=== PATIENT | female | born 1935 | race Caucasian/White ===

== ENCOUNTER 2016-10-13 16:43 | Emergency (ER) | payer MEDICARE, OTHER ==
[2016-10-13 16:51] VITALS: TEMP 98.8
[2016-10-13] MEDS ORDERED: ONDANSETRON 4 MG/2 ML VIAL IVP STA (17:18)
[2016-10-13] MEDS ORDERED: MORPHINE SULFATE 2 MG/ML SYRINGE IVP STA (17:18)
[2016-10-13] MEDS ORDERED: SODIUM CHLORIDE 0.9% 1,000 ML IV STA (17:18)
[2016-10-13 17:37] LABS: Basophils % (A) 0 %; CHCM 31.9; Eosinophils # (A) 0.1 k/uL (0-0.7); Eosinophils % (A) 1 %; HCT 36.2 % (34.0-46.0); HDW 2.36; HGB 11.7 gm/dL (11.4-16.0); Luc # (Auto) 0.09; Luc % (Auto) 1; Lymphocytes # (A) 0.7 k/uL (1.0-4.8); Lymphocytes % (A) 8 %; MCH 27.3 pg (25.0-35.0); MCHC 32.2 g/dL (31.0-37.0); MCV 84.8 fL (80.0-100.0); Mean Platelet Volume 8.4; Monocytes # (A) 0.4 k/uL (0-1.0); Monocytes % (A) 4 %; Neutrophils # (A) 8.1 k/uL (1.3-7.7); Neutrophils % (A) 87 %; RBC 4.28 m/uL (3.80-5.40); RDW 13.9 % (11.5-15.5); WBC 9.3 k/uL (3.8-10.6); WBC (Perox) 9.93
[2016-10-13 17:51] LABS: INR 1.1 (<1.1); Prothrombin Time 11.1 sec (9.0-12.0)
--- NOTE | 2016-10-13 17:54 | ED ---
Abdominal Pain HPI - General Chief Complaint: Abdominal Pain Stated Complaint: Abd Pain Time Seen by Provider: 10/13/16 17:14 Source: patient, EMS, RN notes reviewed Mode of arrival: EMS Limitations: physical limitation - History of Present Illness Initial Comments: 81-year-old female presents emergency Department with chief complaint abdominal pain. Patient states she's been having abdominal pain over the last week. Patient states that she is at metal lodged. Patient states they have been giving her Mylanta but states it's not helping. Patient states she's had several episodes of diarrhea. Patient denies fever, chills. Patient had a prior cholecystectomy and hysterectomy. Patient denies any dysuria, hematuria. Patient has no history of C. diff. Patient denies any chest pain or shortness of breath. Patient states states that ice cream sometimes is help her pain. Patient states the morphine also help. - Related Data Home Medications Medication Instructions Recorded Confirmed Divalproex Sodium [Depakote] 125 mg PO BID 12/08/14 10/13/16 Linagliptin [Tradjenta] 5 mg PO DAILY 12/08/14 10/13/16 Metoprolol Tartrate [Lopressor] 50 mg PO BID 12/08/14 10/13/16 QUEtiapine [SEROquel] 50 mg PO DAILY@1600 12/08/14 10/13/16 Sertraline [Zoloft] 50 mg PO BID 12/08/14 10/13/16 Artificial Tears-Hypromellose 1 drops BOTH EYES TID PRN 06/21/15 10/13/16 [Artificial Tear Drops] Aspirin EC [Ecotrin Low Dose] 81 mg PO DAILY 06/21/15 10/13/16 Pravastatin Sodium [Pravachol] 40 mg PO HS 06/21/15 10/13/16 Ranitidine HCl [Zantac] 75 mg PO HS 06/21/15 10/13/16 ALPRAZolam [Xanax] 0.25 mg PO TID PRN 10/13/16 10/13/16 Acetaminophen [Tylenol] 650 mg PO Q6H PRN MDD 3GM 10/13/16 10/13/16 Antifungal Powder 1 applic TOPICAL DAILY 10/13/16 10/13/16 Cholecalciferol [Vitamin D3] 2,000 unit PO DAILY 10/13/16 10/13/16 Esomeprazole Magnesium [NexIUM] 40 mg PO HS 10/13/16 10/13/16 HYDROcodone/APAP 5-325MG [[place] 1 - 2 tab PO Q4H PRN 10/13/16 10/13/16 5-325] Insulin Aspart [NovoLOG] See Protocol SQ ACHS 10/13/16 10/13/16 Insulin Glargine [Lantus] 6 unit SQ DAILY@0800 10/13/16 10/13/16 Isosorbide Mononitrate ER [Imdur] 30 mg PO DAILY 10/13/16 10/13/16 Memantine [Namenda] 10 mg PO HS 10/13/16 10/13/16 Multivitamins, Thera [Multivitamin] 1 tab PO HS 10/13/16 10/13/16 Mylanta Suspension [id number]/5ml 30 ml PO Q6H PRN 10/13/16 10/13/16 Petrolatum, White [Aquaphor] 1 applic TOPICAL BID 10/13/16 10/13/16 Triamcinolone 0.1% Cream [Kenalog] 1 applicatio TOPICAL BID PRN 10/13/16 glipiZIDE XL [Glucotrol Xl] 10 mg PO DAILY 10/13/16 10/13/16 Previous Rx's Medication Instructions Recorded clonazePAM [KlonoPIN] 0.5 mg PO HS #10 tab 06/27/15 Ciprofloxacin HCl [Cipro] 500 mg PO Q12HR #20 tablet 10/13/16 Allergies Allergy/AdvReac Type Severity Reaction Status Date / Time LEWIS Inhibitors Allergy Unknown Verified 10/13/16 17:01 codeine Allergy Unknown Verified 10/13/16 17:01 influenza virus vaccine, Allergy Unknown Verified 10/13/16 17:01 specific Macrolide Antibiotics Allergy Unknown Verified 10/13/16 17:01 metformin Allergy Unknown Verified 10/13/16 17:01 Penicillins Allergy Unknown Verified 10/13/16 17:01 Review of Systems ROS Statement: Those systems with pertinent positive or pertinent negative responses have been documented in the HPI. ROS Other: All systems not noted in ROS Statement are negative. Past Medical History Past Medical History: Chest Pain / Angina, Dementia, Diabetes Mellitus, GERD/ Reflux, Hypertension, Osteoarthritis (OA) History of Any Multi-Drug Resistant Organisms: None Reported, MRSA Date of last positivie culture/infection: 2013 MDRO Source:: wound Past Surgical History: Cholecystectomy, Hysterectomy, Tonsillectomy Past Anesthesia/Blood Transfusion Reactions: No Reported Reaction Past Psychological History: Anxiety, Depression Smoking Status: Never smoker Past Alcohol Use History: None Reported Past Drug Use History: None Reported - Past Family History Mother Family Medical History: Chest Pain / Angina, Diabetes Mellitus, Hypertension General Exam Limitations: physical limitation General appearance: alert, in no apparent distress Neck exam: Present: normal inspection, full ROM. Absent: tenderness, meningismus, lymphadenopathy Respiratory exam: Present: normal lung sounds bilaterally. Absent: respiratory distress, wheezes, rales, rhonchi, stridor Cardiovascular Exam: Present: regular rate, normal rhythm, normal heart sounds. Absent: systolic murmur, diastolic murmur, rubs, gallop, clicks GI/Abdominal exam: Present: soft, tenderness (Mild tenderness in the upper abdominal region, left side of the abdomen.), normal bowel sounds. Absent: distended, guarding, rebound, rigid Back exam: Absent: CVA tenderness (R), CVA tenderness (L) Skin exam: Present: warm, dry, intact, normal color. Absent: rash Course Vital Signs 10/13/16 10/13/16 16:45 19:30 Temperature 98.8 F Pulse Rate 80 89 Respiratory 18 16 Rate Blood Pressure 114/55 157/81 O2 Sat by Pulse 96 94 L Oximetry Medical Decision Making - Medical Decision Making 81-year-old male present emergency department with chief complaint of abdominal pain diarrhea. Patient has urinary tract infection. There is concern for possible C. diff and which she needs to [facility] Patient was started on Cipro at this time. Return parameters were discussed. - Lab Data Result diagrams: 10/13/16 16:50 10/13/16 16:50 Lab Results 10/13/16 10/13/16 10/13/16 Range/Units 16:50 16:50 16:50 WBC 9.3 (3.8-10.6) k/uL RBC 4.28 (3.80-5.40) m/uL Hgb 11.7 (11.4-16.0) gm/dL Hct 36.2 (34.0-46.0) % MCV 84.8 (80.0-100.0) fL MCH 27.3 (25.0-35.0) pg MCHC 32.2 (31.0-37.0) g/dL RDW 13.9 (11.5-15.5) % Plt Count 177 (150-450) k/uL Neutrophils % 87 % Lymphocytes % 8 % Monocytes % 4 % Eosinophils % 1 % Basophils % 0 % Neutrophils # 8.1 H (1.3-7.7) k/uL Lymphocytes # 0.7 L (1.0-4.8) k/uL Monocytes # 0.4 (0-1.0) k/uL Eosinophils # 0.1 (0-0.7) k/uL Basophils # 0.0 (0-0.2) k/uL PT 11.1 (9.0-12.0) sec INR 1.1 (<1.1) APTT 21.0 L (22.0-30.0) sec Sodium 141 (137-145) mmol/L Potassium 4.5 (3.5-5.1) mmol/L Chloride 105 (98-107) mmol/L Carbon Dioxide 26 (22-30) mmol/L Anion Gap 10 mmol/L BUN 25 H (7-17) mg/dL Creatinine 0.74 (0.52-1.04) mg/dL Est GFR (MDRD) Af Amer >60 (>60 ml/min/1.73 sqM) Est GFR (MDRD) Non-Af >60 (>60 ml/min/1.73 sqM) Glucose 178 H (74-99) mg/dL Plasma Lactic Acid Eleazar (0.7-2.0) mmol/L Calcium 8.8 (8.4-10.2) mg/dL Total Bilirubin 0.8 (0.2-1.3) mg/dL AST 22 (14-36) U/L ALT 25 (9-52) U/L Alkaline Phosphatase 96 (38-126) U/L Total Protein 6.8 (6.3-8.2) g/dL Albumin 3.1 L (3.5-5.0) g/dL Amylase 36 (30-110) U/L Lipase 72 (23-300) U/L Urine Color Urine Appearance (Clear) Urine pH (5.0-8.0) Ur Specific [place] (1.001-1.035) Urine Protein (Negative) Urine Glucose (UA) (Negative) Urine Ketones (Negative) Urine Blood (Negative) Urine Nitrate (Negative) Urine Bilirubin (Negative) Urine Urobilinogen (<2.0) mg/dL Ur Leukocyte Esterase (Negative) Urine WBC (0-5) /hpf Urine Bacteria (None) /hpf Urine Mucus (None) /hpf 10/13/16 10/13/16 Range/Units 18:00 18:44 WBC (3.8-10.6) k/uL RBC (3.80-5.40) m/uL Hgb (11.4-16.0) gm/dL Hct (34.0-46.0) % MCV (80.0-100.0) fL MCH (25.0-35.0) pg MCHC (31.0-37.0) g/dL RDW (11.5-15.5) % Plt Count (150-450) k/uL Neutrophils % % Lymphocytes % % Monocytes % % Eosinophils % % Basophils % % Neutrophils # (1.3-7.7) k/uL Lymphocytes # (1.0-4.8) k/uL Monocytes # (0-1.0) k/uL Eosinophils # (0-0.7) k/uL Basophils # (0-0.2) k/uL PT (9.0-12.0) sec INR (<1.1) APTT (22.0-30.0) sec Sodium (137-145) mmol/L Potassium (3.5-5.1) mmol/L Chloride (98-107) mmol/L Carbon Dioxide (22-30) mmol/L Anion Gap mmol/L BUN (7-17) mg/dL Creatinine (0.52-1.04) mg/dL Est GFR (MDRD) Af Amer (>60 ml/min/1.73 sqM) Est GFR (MDRD) Non-Af (>60 ml/min/1.73 sqM) Glucose (74-99) mg/dL Plasma Lactic Acid Eleazar 0.7 (0.7-2.0) mmol/L Calcium (8.4-10.2) mg/dL Total Bilirubin (0.2-1.3) mg/dL AST (14-36) U/L ALT (9-52) U/L Alkaline Phosphatase (38-126) U/L Total Protein (6.3-8.2) g/dL Albumin (3.5-5.0) g/dL Amylase (30-110) U/L Lipase (23-300) U/L Urine Color Yellow Urine Appearance Cloudy H (Clear) Urine pH 6.0 (5.0-8.0) Ur Specific [place] 1.020 (1.001-1.035) Urine Protein Trace H (Negative) Urine Glucose (UA) Negative (Negative) Urine Ketones Trace H (Negative) Urine Blood Negative (Negative) Urine Nitrate Positive H (Negative) Urine Bilirubin Negative (Negative) Urine Urobilinogen <2.0 (<2.0) mg/dL Ur Leukocyte Esterase Large H (Negative) Urine WBC >182 H (0-5) /hpf Urine Bacteria Occasional H (None) /hpf Urine Mucus Rare H (None) /hpf Disposition Clinical Impression: Abdominal pain, UTI (urinary tract infection), Diarrhea Disposition: HOME SELF-CARE Condition: Stable Instructions: Abdominal Pain (ED) Additional Instructions: please complete stool studies as discussed. Please return to the Emergency Department if symptoms worsen or any other concerns. Prescriptions: Ciprofloxacin HCl [Cipro] 500 mg PO Q12HR #20 tablet Time of Disposition: 19:38
[2016-10-13 18:01] LABS: ALT 25 U/L (9-52); AST 22 U/L (14-36); Alkaline Phosphatase 96 U/L (38-126); Amylase 36 U/L (30-110); Anion Gap 10 mmol/L; Blood Urea Nitrogen 25 mg/dL (7-17); Calcium 8.8 mg/dL (8.4-10.2); Carbon Dioxide 26 mmol/L (22-30); Chloride 105 mmol/L (98-107); Glucose 178 mg/dL (74-99); Non-African American GFR(MDRD) >60 (>60 ml/min/1.73 sqM); Sodium 141 mmol/L (137-145); Total Bilirubin 0.8 mg/dL (0.2-1.3); Total Protein 6.8 g/dL (6.3-8.2)
[2016-10-13 18:02] LABS: Potassium 4.5 mmol/L (3.5-5.1)
--- NOTE | 2016-10-13 18:04 | XR ---
EXAMINATION TYPE: XR KUB DATE OF EXAM: 10/13/2016 5:58 PM COMPARISON: 11/26/2012 HISTORY: Abdominal pain and nausea TECHNIQUE: 2 views FINDINGS: There is no sign of intestinal obstruction or pneumoperitoneum. Fecal pattern is normal. Th ere is no sign of a mass. There are no pathologic calcifications over the kidneys. Abdominal aorta is atheromatous. IMPRESSION: Nonacute abdomen. No change.
[2016-10-13] MEDS ORDERED: RX INFO: IV CONTRAST WAS GIVEN 1 EACH MISC MISCELLANE PRN (18:07)
[2016-10-13 18:37] LABS: Appearance,Urine Cloudy (Clear); Bacteria,Urine Occasional /hpf; Bilirubin,Urine Negative (Negative); Glucose,Urine (UA) Negative (Negative); Ketones,Urine Trace (Negative); Leukocyte Esterase,Urine Large (Negative); Mucus,Urine Rare /hpf; Nitrite,Urine Positive (Negative); Particle Count 152993; Protein,Urine Trace (Negative); UA Billing (MACRO vs. MICRO) MICRO; Urobilinogen,Urine <2.0 mg/dL (<2.0); WBC,Urine >182 /hpf (0-5)
--- NOTE | 2016-10-13 18:50 | CT ---
EXAMINATION TYPE: CT abdomen pelvis w con DATE OF EXAM: 10/13/2016 6:41 PM COMPARISON: NONE HISTORY: PT STATES OF ABDOMINAL PAIN WITH NAUSEA AND DIARRHEA. CT DLP: 1714.1 mGycm Automated exposure control for dose reduction was used. TECHNIQUE: Helical acquisition of images was performed from the lung bases through the pelvis. CONTRAST: Performed without Oral Contrast and with IV Contrast, patient injected with 100 mL of Omnipaque 300. FINDINGS: There is patchy atelectasis at the lung bases. There is no pleural effusion. There is no pericardial effusion. Liver shows no focal defect. Spleen shows no focal defect. There is no sign of a pancreatic mass. Jacinto e ducts are not dilated. Cholecystectomy is noted. There is no adrenal mass. There is thinning of the left renal cortex. There is no hydronephrosis. The re is no evidence of a renal mass. Abdominal aorta is atheromatous. There is no retroperitoneal adeno mana. There is a small umbilical hernia that contains omental fat. The appendix appears normal. There is no evidence of a bowel obstruction. There is fluid in the: Down to the rectum. Bladder distends smoothly. There are sigmoid diverticula. There is no evidence of div erticulitis. There is a small amount of free fluid in the pelvis. There are spondylotic changes in th e thoracic and lumbar spine. IMPRESSION: THERE ARE COLONIC FLUID LEVELS CONSISTENT WITH DIARRHEA. MINIMAL FREE FLUID IN THE PELVIS OF UNCERTAI N SIGNIFICANCE. MILD COLONIC DIVERTICULOSIS. UMBILICAL HERNIA. MILD ATELECTASIS AT THE LUNG BASES.
[2016-10-13 19:33] VITALS: BP 157/81; PULSE 89; RESP 16
== END 2016-10-13 20:22 | disposition home or self-care (01) ==
LOC: EC 16:43
DX: N39.0 Urinary tract infection, site not specified (principal); R19.7 Diarrhea, unspecified; E11.9 Type 2 diabetes mellitus without complications; I10 Essential (primary) hypertension; K21.9 Gastro-esophageal reflux disease without esophagitis; M19.90 Unspecified osteoarthritis, unspecified site; F41.9 Anxiety disorder, unspecified; F32.9 Major depressive disorder, single episode, unspecified; F03.90 Unspecified dementia, unspecified severity, without behavioral disturbance, psychotic disturbance, mood disturbance, and anxiety; Z86.14 Personal history of Methicillin resistant Staphylococcus aureus infection; Z88.5 Allergy status to narcotic agent; Z88.0 Allergy status to penicillin; Z88.8 Allergy status to other drugs, medicaments and biological substances; Z88.7 Allergy status to serum and vaccine; Z88.1 Allergy status to other antibiotic agents; Z79.4 Long term (current) use of insulin; Z79.899 Other long term (current) drug therapy; Z79.84 Long term (current) use of oral hypoglycemic drugs; Z79.82 Long term (current) use of aspirin
CPT/HCPCS: 99285; 96374; 96375; 96361; 36415; 80053; 82150; 83605; 83690; 85025; 85610; 85730; 81001; 87086; 87077; 87186; 74000; 74177; J2405; J2270; Q9967

== ENCOUNTER 2021-07-28 02:34 | Inpatient (IN) | payer MEDICARE, OTHER ==
[2021-07-28] MEDS ORDERED: SODIUM CHLORIDE 0.9% 1,000 ML IV STA (02:40)
[2021-07-28] MEDS ORDERED: KETOROLAC 30 MG/ML 1 ML VIAL IVP STA (02:40)
[2021-07-28] MEDS ORDERED: ACETAMINOPHEN TAB 500 MG TAB PO STA (02:40)
--- NOTE | 2021-07-28 02:42 | ED ---
Fever HPI - General Stated Complaint: Fever Time Seen by Provider: 07/28/21 02:36 Source: RN notes reviewed, old records reviewed Limitations: no limitations - History of Present Illness Initial Comments: This is an 85-year-old female to the emergency room today. Patient presents today for evaluation regards to fever. Fever not feeling well. Weakness. Eyes for evaluation of fever and cough for metal lodged patient is a poor strain secondary to dementia. Patient had covert test that was negative MD Complaint: fever, malaise, weakness -: hour(s) Temperature Source: subjective Context: multiple patients with similar symptoms Associated Symptoms: chills, myalgias, cough Treatments Prior to Arrival: none, Acetaminophen - Related Data Home Medications Medication Instructions Recorded Confirmed Divalproex Sodium [Depakote] 125 mg PO BID 12/08/14 10/13/16 Linagliptin [Tradjenta] 5 mg PO DAILY 12/08/14 10/13/16 Metoprolol Tartrate [Lopressor] 50 mg PO BID 12/08/14 10/13/16 QUEtiapine [SEROquel] 50 mg PO DAILY@1600 12/08/14 10/13/16 Sertraline [Zoloft] 50 mg PO BID 12/08/14 10/13/16 Artificial Tears-Hypromellose 1 drops BOTH EYES TID PRN 06/21/15 10/13/16 [Artificial Tear Drops] Aspirin EC [Ecotrin Low Dose] 81 mg PO DAILY 06/21/15 10/13/16 Pravastatin Sodium [Pravachol] 40 mg PO HS 06/21/15 10/13/16 raNITIdine HCL [Zantac] 75 mg PO HS 06/21/15 10/13/16 ALPRAZolam [Xanax] 0.25 mg PO TID PRN 10/13/16 10/13/16 Acetaminophen [Tylenol] 650 mg PO Q6H PRN MDD 3GM 10/13/16 10/13/16 Antifungal Powder 1 applic TOPICAL DAILY 10/13/16 10/13/16 Cholecalciferol [Vitamin D3] 2,000 unit PO DAILY 10/13/16 10/13/16 Esomeprazole Magnesium [NexIUM] 40 mg PO HS 10/13/16 10/13/16 HYDROcodone/APAP 5-325MG [[place] 1 - 2 tab PO Q4H PRN 10/13/16 10/13/16 5-325] INSULIN ASPART (NovoLOG) [NovoLOG] See Protocol SQ ACHS 10/13/16 10/13/16 Insulin Glargine [Lantus] 6 unit SQ DAILY@0800 10/13/16 10/13/16 Isosorbide Mononitrate ER [Imdur] 30 mg PO DAILY 10/13/16 10/13/16 Memantine [Namenda] 10 mg PO HS 10/13/16 10/13/16 Multivitamins, Thera [Multivitamin] 1 tab PO HS 10/13/16 10/13/16 Mylanta Suspension [id number]/5ml 30 ml PO Q6H PRN 10/13/16 10/13/16 Petrolatum, White [Aquaphor] 1 applic TOPICAL BID 10/13/16 10/13/16 Triamcinolone 0.1% Cream [Kenalog 1 applicatio TOPICAL BID PRN 10/13/16 10/13/16 0.1% Cream] glipiZIDE XL [Glucotrol Xl] 10 mg PO DAILY 10/13/16 10/13/16 Previous Rx's Medication Instructions Recorded clonazePAM [KlonoPIN] 0.5 mg PO HS #10 tab 06/27/15 Ciprofloxacin HCl [Cipro] 500 mg PO Q12HR #20 tablet 10/13/16 Allergies Allergy/AdvReac Type Severity Reaction Status Date / Time LEWIS Inhibitors Allergy Unknown Verified 07/28/21 02:45 codeine Allergy Unknown Verified 07/28/21 02:45 influenza virus vaccine, Allergy Unknown Verified 07/28/21 02:45 specific Macrolide Antibiotics Allergy Unknown Verified 07/28/21 02:45 metformin Allergy Unknown Verified 07/28/21 02:45 Penicillins Allergy Unknown Verified 07/28/21 02:45 Review of Systems ROS Statement: Those systems with pertinent positive or pertinent negative responses have been documented in the HPI. ROS Other: All systems not noted in ROS Statement are negative. Past Medical History Past Medical History: Chest Pain / Angina, Dementia, Diabetes Mellitus, GERD/Reflux, Hypertension, Osteoarthritis (OA) History of Any Multi-Drug Resistant Organisms: ESBL, MRSA Date of last positivie culture/infection: 01/11/14 MRSA MDRO Source:: ESBL URINE, MRSA Buttock Past Surgical History: Cholecystectomy, Hysterectomy, Tonsillectomy Past Anesthesia/Blood Transfusion Reactions: No Reported Reaction Past Psychological History: Anxiety, Depression Past Alcohol Use History: None Reported Past Drug Use History: None Reported - Past Family History Mother Family Medical History: Chest Pain / Angina, Diabetes Mellitus, Hypertension General Exam General appearance: alert, in no apparent distress, anxious Head exam: Present: atraumatic, normocephalic, normal inspection Eye exam: Present: normal appearance, PERRL, EOMI. Absent: scleral icterus, conjunctival injection, periorbital swelling ENT exam: Present: normal exam, mucous membranes dry Neck exam: Present: normal inspection. Absent: tenderness, meningismus, lymphadenopathy Respiratory exam: Present: normal lung sounds bilaterally. Absent: respiratory distress, wheezes, rales, rhonchi, stridor Cardiovascular Exam: Present: normal rhythm, tachycardia, normal heart sounds. Absent: systolic murmur, diastolic murmur, rubs, gallop, clicks GI/Abdominal exam: Present: soft, normal bowel sounds. Absent: distended, tenderness, guarding, rebound, rigid Extremities exam: Present: normal inspection, full ROM, normal capillary refill. Absent: tenderness, pedal edema, joint swelling, calf tenderness Back exam: Present: normal inspection Neurological exam: Present: alert, oriented X3, CN II-XII intact Psychiatric exam: Present: normal affect, normal mood Skin exam: Present: warm, dry, intact, normal color. Absent: rash Course Vital Signs 07/28/21 07/28/21 07/28/21 02:40 03:00 03:59 Temperature 101.5 F H 101.0 F H Pulse Rate 125 H 120 H 113 H Respiratory 20 18 16 Rate Blood Pressure 118/53 111/51 113/62 O2 Sat by Pulse 96 95 Oximetry - Reevaluation(s) Reevaluation #1: 07/28/21 04:12 Medical record is reviewed Reevaluation #2: 07/28/21 05:07 Patient has no change in symptoms here in the ER Reevaluation #3: 07/28/21 05:08 Patient informed results and questions answered - Consultations Consultation #1: Spoke with [facility] were agreed to admit this patient Medical Decision Making - Medical Decision Making 85 female DF for evaluation of fever and altered mental status positive for UTI x-rays negative patient will be admitted for IV antibiotics and treatment - Lab Data Result diagrams: 07/28/21 03:05 07/28/21 03:05 Lab Results 07/28/21 07/28/21 07/28/21 Range/Units 03:05 03:05 03:05 WBC 6.7 (3.8-10.6) k/uL RBC 3.69 L (3.80-5.40) m/uL Hgb 10.2 L (11.4-16.0) gm/dL Hct 30.4 L (34.0-46.0) % MCV 82.4 (80.0-100.0) fL MCH 27.6 (25.0-35.0) pg MCHC 33.5 (31.0-37.0) g/dL RDW 14.0 (11.5-15.5) % Plt Count 184 (150-450) k/uL MPV 9.4 Neutrophils % 80 % Lymphocytes % 8 % Monocytes % 9 % Eosinophils % 1 % Basophils % 0 % Neutrophils # 5.4 (1.3-7.7) k/uL Lymphocytes # 0.6 L (1.0-4.8) k/uL Monocytes # 0.6 (0-1.0) k/uL Eosinophils # 0.1 (0-0.7) k/uL Basophils # 0.0 (0-0.2) k/uL PT 11.8 (9.0-12.0) sec INR 1.1 (<1.2) APTT 21.1 L (22.0-30.0) sec Sodium 134 L (137-145) mmol/L Potassium 4.5 (3.5-5.1) mmol/L Chloride 103 (98-107) mmol/L Carbon Dioxide 24 (22-30) mmol/L Anion Gap 7 mmol/L BUN 30 H (7-17) mg/dL Creatinine 0.87 (0.52-1.04) mg/dL Est GFR (CKD-EPI)AfAm 71 (>60 ml/min/1.73 sqM) Est GFR (CKD-EPI)NonAf 62 (>60 ml/min/1.73 sqM) Glucose 108 H (74-99) mg/dL Plasma Lactic Acid [place] (0.7-2.0) mmol/L Calcium 8.6 (8.4-10.2) mg/dL Magnesium 1.7 (1.6-2.3) mg/dL Total Bilirubin 0.3 (0.2-1.3) mg/dL AST 24 (14-36) U/L ALT 12 (4-34) U/L Alkaline Phosphatase 70 (38-126) U/L Lactate Dehydrogenase 509 (313-618) U/L C-Reactive Protein 4.9 H (<1.0) mg/dL Total Protein 6.5 (6.3-8.2) g/dL Albumin 2.8 L (3.5-5.0) g/dL Urine Color Urine Appearance (Clear) Urine pH (5.0-8.0) Ur Specific [place] (1.001-1.035) Urine Protein (Negative) Urine Glucose (UA) (Negative) Urine Ketones (Negative) Urine Blood (Negative) Urine Nitrite (Negative) Urine Bilirubin (Negative) Urine Urobilinogen (<2.0) mg/dL Ur Leukocyte Esterase (Negative) Urine RBC (0-5) /hpf Urine WBC (0-5) /hpf Urine WBC Clumps (None) /hpf Urine Bacteria (None) /hpf Urine Mucus (None) /hpf 07/28/21 07/28/21 Range/Units 03:05 03:55 WBC (3.8-10.6) k/uL RBC (3.80-5.40) m/uL Hgb (11.4-16.0) gm/dL Hct (34.0-46.0) % MCV (80.0-100.0) fL MCH (25.0-35.0) pg MCHC (31.0-37.0) g/dL RDW (11.5-15.5) % Plt Count (150-450) k/uL MPV Neutrophils % % Lymphocytes % % Monocytes % % Eosinophils % % Basophils % % Neutrophils # (1.3-7.7) k/uL Lymphocytes # (1.0-4.8) k/uL Monocytes # (0-1.0) k/uL Eosinophils # (0-0.7) k/uL Basophils # (0-0.2) k/uL PT (9.0-12.0) sec INR (<1.2) APTT (22.0-30.0) sec Sodium (137-145) mmol/L Potassium (3.5-5.1) mmol/L Chloride (98-107) mmol/L Carbon Dioxide (22-30) mmol/L Anion Gap mmol/L BUN (7-17) mg/dL Creatinine (0.52-1.04) mg/dL Est GFR (CKD-EPI)AfAm (>60 ml/min/1.73 sqM) Est GFR (CKD-EPI)NonAf (>60 ml/min/1.73 sqM) Glucose (74-99) mg/dL Plasma Lactic Acid [place] 1.0 (0.7-2.0) mmol/L Calcium (8.4-10.2) mg/dL Magnesium (1.6-2.3) mg/dL Total Bilirubin (0.2-1.3) mg/dL AST (14-36) U/L ALT (4-34) U/L Alkaline Phosphatase (38-126) U/L Lactate Dehydrogenase (313-618) U/L C-Reactive Protein (<1.0) mg/dL Total Protein (6.3-8.2) g/dL Albumin (3.5-5.0) g/dL Urine Color Yellow Urine Appearance Turbid H (Clear) Urine pH 8.5 H (5.0-8.0) Ur Specific [place] 1.016 (1.001-1.035) Urine Protein 3+ H (Negative) Urine Glucose (UA) Negative (Negative) Urine Ketones Negative (Negative) Urine Blood Small H (Negative) Urine Nitrite Negative (Negative) Urine Bilirubin Negative (Negative) Urine Urobilinogen <2.0 (<2.0) mg/dL Ur Leukocyte Esterase Large H (Negative) Urine RBC >182 H (0-5) /hpf Urine WBC >182 H (0-5) /hpf Urine WBC Clumps Many H (None) /hpf Urine Bacteria Many H (None) /hpf Urine Mucus Rare H (None) /hpf - EKG Data -: EKG Interpreted by Me (EKG shows sinus rhythm 124 [place] 170 QRS 72 QTC 439) - Radiology Data Radiology results: report reviewed (Chest x-rays negative for acute disease), image reviewed Disposition Clinical Impression: Weakness, Altered mental state, UTI (urinary tract infection) Disposition: ADMITTED IP TO [facility] Condition: Fair Is patient prescribed a controlled substance at d/c from ED?: No Referrals: Brad Velasco DO [Primary Care Provider] - 1-2 days
--- NOTE | 2021-07-28 03:15 | XR ---
EXAMINATION TYPE: XR chest 1V portable DATE OF EXAM: 07/28/2021 COMPARISON: 06/23/2015 HISTORY: Pneumonia TECHNIQUE: Single view FINDINGS: There is no heart failure nor confluent pneumonic infiltrate. Costophrenic angles are clear . There are no hilar masses. IMPRESSION: No active cardiopulmonary disease. No change.
[2021-07-28 03:29] LABS: Basophils % (A) 0 %; Eosinophils # (A) 0.1 k/uL (0-0.7); Eosinophils % (A) 1 %; HCT 30.4 % (34.0-46.0); HGB 10.2 gm/dL (11.4-16.0); Lymphocytes # (A) 0.6 k/uL (1.0-4.8); Lymphocytes % (A) 8 %; MCH 27.6 pg (25.0-35.0); MCHC 33.5 g/dL (31.0-37.0); MCV 82.4 fL (80.0-100.0); Mean Platelet Volume 9.4; Monocytes # (A) 0.6 k/uL (0-1.0); Monocytes % (A) 9 %; Neutrophils # (A) 5.4 k/uL (1.3-7.7); Neutrophils % (A) 80 %; Platelet Count 184 k/uL (150-450); RBC 3.69 m/uL (3.80-5.40); WBC 6.7 k/uL (3.8-10.6)
[2021-07-28 03:54] LABS: INR 1.1 (<1.2); Prothrombin Time 11.8 sec (9.0-12.0)
[2021-07-28 04:08] LABS: Partial Thromboplastin Time 21.1 sec (22.0-30.0)
[2021-07-28 04:10] LABS: Albumin 2.8 g/dL (3.5-5.0); C Reactive Protein 4.9 mg/dL (<1.0); Calcium 8.6 mg/dL (8.4-10.2); Magnesium 1.7 mg/dL (1.6-2.3); Potassium 4.5 mmol/L (3.5-5.1); Total Bilirubin 0.3 mg/dL (0.2-1.3); Total Protein 6.5 g/dL (6.3-8.2)
[2021-07-28 04:40] LABS: Appearance,Urine Turbid (Clear); Bacteria,Urine Many /hpf; Bilirubin,Urine Negative (Negative); Blood,Urine Small (Negative); Color,Urine Yellow; Glucose,Urine (UA) Negative (Negative); Ketones,Urine Negative (Negative); Leukocyte Esterase,Urine Large (Negative); Mucus,Urine Rare /hpf; Nitrite,Urine Negative (Negative); PH, Urine 8.5 (5.0-8.0); Protein,Urine 3+ (Negative); RBC,Urine >182 /hpf (0-5); Specific Gravity,Urine 1.016 (1.001-1.035); Urobilinogen,Urine <2.0 mg/dL (<2.0); WBC,Urine >182 /hpf (0-5)
[2021-07-28] MEDS ORDERED: NALOXONE 0.4 MG/ML 1 ML VIAL IV PRN (04:59)
[2021-07-28] MEDS ORDERED: ONDANSETRON 4 MG/2 ML VIAL IVP PRN (04:59)
[2021-07-28] MEDS: MORPHINE SULFATE 4 MG/ML SYRINGE IV PRN ×2 (05:44→23:52)
[2021-07-28] MEDS: SODIUM CHLORIDE 0.9% 1,000 ML IV SCH ×3 (05:45→18:23)
[2021-07-28] MEDS ORDERED: CALCIUM CARBONATE 500 MG CHEWABLE PO PRN (14:19)
[2021-07-28] MEDS ORDERED: MAG HYDROX/AL HYDROX/SIMETH 30 ML CUP PO PRN (14:19)
[2021-07-28] MEDS ORDERED: MAGNESIUM HYDROXIDE 2,400 MG/10 ML CUP PO PRN (14:19)
[2021-07-28] MEDS ORDERED: LACTULOSE 20 GM/30 ML CUP PO PRN (14:19)
[2021-07-28] MEDS ORDERED: MELATONIN 3 MG TABLET PO PRN (14:19)
[2021-07-28] MEDS ORDERED: ALPRAZolam 0.25 MG TAB PO PRN (14:19)
[2021-07-28] MEDS: PSYLLIUM HUSK 100% 6 GM PACKET PO SCH (15:59)
[2021-07-28] MEDS: ISOSORBIDE MONONITRATE ER 30 MG TAB.ER.24H PO SCH (15:59)
[2021-07-28] MEDS: DIVALPROEX SPRINKLE 125 MG CAP.SPRINK PO SCH ×2 (15:59→23:40)
[2021-07-28] MEDS: METOPROLOL TARTRATE 25 MG TAB PO SCH (15:59)
[2021-07-28] MEDS: SERTRALINE 50 MG TAB PO SCH (15:59)
[2021-07-28] MEDS ORDERED: NON FORMULARY DRUG (Cranberry Fruit Extract [Cranberry] 500 MG Tablet) PO SCH (21:00)
--- NOTE | 2021-07-28 21:25 | P.HPIM ---
History of Present Illness H&P Date: 07/28/21 Chief Complaint: Fever This is a 85-year-old patient who follows with Dr. Velasco at [facility]. Chronic stable medical conditions include dementia, diabetes, GERD, hypertension, osteoarthritis, anxiety depression. Per the EMS run sheet patient was at the baseline mental status. Normally AO 2. Patient developed a fever 102 and a productive cough. Rapid COVID saw was negative. Patient had a very productive cough. Body aches and pains. Care is patient is somewhat delirious mumbling. Not able to give much of a history. r congestive cough. Patient did test positive for COVID. Review of systems cannot be obtained as patient rather delirious Past medical history to include: Dementia, diabetes, GERD, hypertension, osteoarthritis, anxiety, depression Social history: Resident of [facility]. No history of smoking or alcohol r eported. Family history: Diabetes, hypertension Physical examination: VITAL SIGNS: 101.5, 125, 20, 118/53, 96% room air upon presentation GENERAL: BMI 29.9, laying in bed a bit lethargic delirious. Congested cough EYES: Pupils equal. Conjunctiva normal. HEENT: External appearance of nose and ears normal, oral cavity grossly normal. NECK: JVD not raised; masses not palpable. HEART: First and second heart sounds are normal; no edema. LUNGS: Respiratory rate increased, decreased breath sound expiratory crackles. ABDOMEN: Soft, nontender, liver spleen not palpable, no masses palpable. PSYCH: [Unable to assess patient somewhat delirious l. MUSCULAR skeletal: Evidence of OA in multiple joints NEUROLOGICAL: [Cranial nerves grossly intact; no facial asymmetry, moving limbs LYMPHATICS: No lymph nodes palpable in the axilla and neck INVESTIGATIONS, reviewed in the clinical context: White count 6.7 hemoglobin 10.2 platelets 184 sodium 134 potassium 4.5 BUN 30 creatinine 0.87 CRP 4.9 UA positive for leukoesterase WBC bacteria Coronavirus [PCR]: Detected d-dimer 3.53 EKG tracing personally reviewed by me-sinus tachycardia. Rate 124 Chest x-ray film personally reviewed by me-possible infiltrate. Portable Assessment and plan: -Acute COVID 19 pneumonitis. Patient's pulse ox as above 94%. We will hold off any steroids. Give vitamin C vitamin D zinc supplement. Subcu Lovenox -Acute UTI with cystitis IV ceftriaxone -Sepsis from pneumonitis and UTI IV fluids -Acute metabolic encephalopathy/delirium from sepsis Follow clinically -Anxiety depression otherwise specified Klonopin 0.5 mg daily at bedtime sotalol 50 mg twice a day Seroquel 200 mg daily at bedtime Seroquel 100 mg daily at bedtime -Hyperlipidemia Pravachol 20 mg daily at bedtime -Essential hypertension Lopressor 50 mg twice a day -Cognitive impairment likely from Alzheimer's dementia Namenda 10 mg daily at bedtime -Diabetes mellitus type 2 chronically on insulin Levemir 47 units subcu daily. Follow Accu-Cheks -GERD Nexium 40 mg daily at bedtime -Primary osteoarthritis multiple joints bilaterally Pain medications as needed Aspiration precautions. All feeding with assistance. Vitamin C vitamin D zinc. IV ceftriaxone. IV fluids. Follow Accu-Cheks. Resume home medications. Prognosis guarded. Given the complexity and severity of patient's condition expect the patient to be in the hospital at least for 2 overnights Past Medical History Past Medical History: Chest Pain / Angina, Dementia, Diabetes Mellitus, GERD/Reflux, Hypertension, Osteoarthritis (OA) History of Any Multi-Drug Resistant Organisms: ESBL, MRSA Date of last positivie culture/infection: 01/11/14 MRSA MDRO Source:: ESBL URINE, MRSA Buttock Past Surgical History: Cholecystectomy, Hysterectomy, Tonsillectomy Past Anesthesia/Blood Transfusion Reactions: No Reported Reaction Past Psychological History: Anxiety, Depression Past Alcohol Use History: None Reported Past Drug Use History: None Reported - Past Family History Mother Family Medical History: Chest Pain / Angina, Diabetes Mellitus, Hypertension Medications and Allergies Home Medications Medication Instructions Recorded Confirmed Type Divalproex Sodium [Depakote] 125 mg PO BID 12/08/14 07/28/21 History Linagliptin [Tradjenta] 5 mg PO DAILY 12/08/14 07/28/21 History Metoprolol Tartrate [Lopressor] 50 mg PO BID@0800,1600 12/08/14 07/28/21 History Sertraline [Zoloft] 50 mg PO BID@0800,1600 12/08/14 07/28/21 History Aspirin EC [Ecotrin Low Dose] 81 mg PO DAILY 06/21/15 07/28/21 History clonazePAM [KlonoPIN] 0.5 mg PO HS #10 tab 06/27/15 07/28/21 Rx Acetaminophen [Tylenol] 650 mg PO Q8H PRN 10/13/16 07/28/21 History Cholecalciferol [Vitamin D3] 50 mcg PO DAILY 10/13/16 07/28/21 History Esomeprazole Magnesium [NexIUM] 40 mg PO HS 10/13/16 07/28/21 History Isosorbide Mononitrate ER [Imdur] 90 mg PO DAILY 10/13/16 07/28/21 History Memantine [Namenda] 10 mg PO HS 10/13/16 07/28/21 History Multivitamins, Thera [Multivitamin] 1 tab PO DAILY 10/13/16 07/28/21 History Ascorbic Acid [Vitamin C] 500 mg PO BID 07/28/21 07/28/21 History Cranberry Fruit Extract [Cranberry] 500 mg PO HS 07/28/21 07/28/21 History Ferrous Sulfate [Feosol] 325 mg PO DAILY 07/28/21 07/28/21 History Insulin Detemir [Levemir Flextouch 47 units SQ DAILY 07/28/21 07/28/21 History Pen] Pravastatin Sodium [Pravachol] 20 mg PO HS 07/28/21 07/28/21 History Psyllium Husk 100% [Metamucil 6 gm PO DAILY 07/28/21 07/28/21 History Packet] QUEtiapine FUMARATE [SEROquel] 200 mg PO HS 07/28/21 07/28/21 History QUEtiapine [SEROquel] 100 mg PO HS 07/28/21 07/28/21 History Repaglinide [Prandin] 1 mg PO TID@0700,1200,1700 07/28/21 07/28/21 History Sennosides/Docusate Sodium [Senna 1 tab PO BID 07/28/21 07/28/21 History Plus 8.6-50 mg Tablet] Allergies Allergy/AdvReac Type Severity Reaction Status Date / Time LEWIS Inhibitors Allergy Unknown Verified 07/28/21 09:33 codeine Allergy Unknown Verified 07/28/21 09:33 influenza virus vaccine, Allergy Unknown Verified 07/28/21 09:33 specific Macrolide Antibiotics Allergy Unknown Verified 07/28/21 09:33 metformin Allergy Unknown Verified 07/28/21 09:33 Penicillins Allergy Unknown Verified 07/28/21 09:33 Physical Exam Vitals: Vital Signs Temp Pulse Pulse Resp BP BP Pulse Ox 07/28/21 19:58 108 H 18 119/67 95 07/28/21 14:00 98.8 F 104 H 18 144/72 94 L 07/28/21 08:00 99.6 F 109 H 18 127/54 92 L 07/28/21 05:00 105 H 18 92/56 96 07/28/21 03:59 101.0 F H 113 H 16 113/62 07/28/21 03:00 120 H 18 111/51 95 07/28/21 02:40 101.5 F H 125 H 20 118/53 96 Intake and Output 07/28/21 07/28/21 07/28/21 06:59 14:59 22:59 Output Total 800 Balance -800 Output: Urine 800 Uretheral (Ledesma) 800 Other: Voiding Method Indwelling Catheter # Bowel Movements 0 Weight 89.222 kg Results CBC & Chem 7: 07/28/21 03:05 07/28/21 03:05 Labs: Abnormal Lab Results - Last 24 Hours (Table) 07/28/21 07/28/21 07/28/21 Range/Units 03:05 03:05 03:05 RBC 3.69 L (3.80-5.40) m/uL Hgb 10.2 L (11.4-16.0) gm/dL Hct 30.4 L (34.0-46.0) % Lymphocytes # 0.6 L (1.0-4.8) k/uL APTT 21.1 L (22.0-30.0) sec D-Dimer (<0.60) mg/L FEU Sodium 134 L (137-145) mmol/L BUN 30 H (7-17) mg/dL Glucose 108 H (74-99) mg/dL C-Reactive Protein 4.9 H (<1.0) mg/dL Albumin 2.8 L (3.5-5.0) g/dL Urine Appearance (Clear) Urine pH (5.0-8.0) Urine Protein (Negative) Urine Blood (Negative) Ur Leukocyte Esterase (Negative) Urine RBC (0-5) /hpf Urine WBC (0-5) /hpf Urine WBC Clumps (None) /hpf Urine Bacteria (None) /hpf Urine Mucus (None) /hpf Coronavirus (PCR) (Not Detectd) 07/28/21 07/28/21 07/28/21 Range/Units 03:55 12:18 15:30 RBC (3.80-5.40) m/uL Hgb (11.4-16.0) gm/dL Hct (34.0-46.0) % Lymphocytes # (1.0-4.8) k/uL APTT (22.0-30.0) sec D-Dimer 3.53 H (<0.60) mg/L FEU Sodium (137-145) mmol/L BUN (7-17) mg/dL Glucose (74-99) mg/dL C-Reactive Protein (<1.0) mg/dL Albumin (3.5-5.0) g/dL Urine Appearance Turbid H (Clear) Urine pH 8.5 H (5.0-8.0) Urine Protein 3+ H (Negative) Urine Blood Small H (Negative) Ur Leukocyte Esterase Large H (Negative) Urine RBC >182 H (0-5) /hpf Urine WBC >182 H (0-5) /hpf Urine WBC Clumps Many H (None) /hpf Urine Bacteria Many H (None) /hpf Urine Mucus Rare H (None) /hpf Coronavirus (PCR) Detected A (Not Detectd)
[2021-07-28] MEDS: ENOXAPARIN 40 MG/0.4 ML SYRINGE SQ SCH (23:40)
[2021-07-28] MEDS: MEMANTINE 10 MG TAB PO SCH (23:41)
[2021-07-28] MEDS: clonazePAM 0.5 MG TAB PO SCH (23:42)
[2021-07-29] MEDS: SENNOSIDES-DOCUSATE SODIUM 1 EACH TAB PO SCH ×3 (00:02→08:06)
[2021-07-29] MEDS: PANTOPRAZOLE 40 MG TABLET PO SCH ×3 (00:02→22:19)
[2021-07-29] MEDS: QUEtiapine 200 MG TAB PO SCH ×3 (00:02→20:42)
[2021-07-29] MEDS: PRAVASTATIN SODIUM 20 MG TAB PO SCH ×3 (00:02→20:42)
[2021-07-29] MEDS: ASCORBIC ACID 500 MG TAB PO SCH ×4 (03:16→22:20)
[2021-07-29] MEDS: SODIUM CHLORIDE 0.9% 1,000 ML IV SCH ×2 (03:17→11:34)
[2021-07-29] MEDS: ACETAMINOPHEN TAB 325 MG TAB PO PRN (05:00)
[2021-07-29] MEDS ORDERED: FUROSEMIDE 10 MG/ML 4 ML VIAL IV STA (06:25)
[2021-07-29 07:21] LABS: Glucose,Whole Blood 62 mg/dL (75-99)
[2021-07-29] MEDS: INSULIN DETEMIR (LEVEMIR) 100 UNIT/ML SYR SQ SCH (07:56)
[2021-07-29 07:57] LABS: ALT 16 U/L (4-34); AST 39 U/L (14-36); African American GFR (CKD) 74 (>60 ml/min/1.73 sqM); Albumin 2.6 g/dL (3.5-5.0); Albumin/Globulin Ratio 0.7; Alkaline Phosphatase 69 U/L (38-126); Anion Gap 7 mmol/L; Blood Urea Nitrogen 19 mg/dL (7-17); Calcium 7.6 mg/dL (8.4-10.2); Carbon Dioxide 25 mmol/L (22-30); Chloride 107 mmol/L (98-107); Globulin 3.6 g/dL; Glucose 68 mg/dL (74-99); Non-African American GFR(CKD) 64 (>60 ml/min/1.73 sqM); Potassium 4.5 mmol/L (3.5-5.1); Sodium 139 mmol/L (137-145); Total Bilirubin 0.2 mg/dL (0.2-1.3); Total Protein 6.2 g/dL (6.3-8.2)
[2021-07-29] MEDS: DIVALPROEX SPRINKLE 125 MG CAP.SPRINK PO SCH ×4 (07:59→22:19)
[2021-07-29] MEDS: ASPIRIN 81 MG PO SCH ×3 (07:59→12:00)
[2021-07-29] MEDS: CHOLECALCIFEROL 25 MCG (1000 IU) TABLET PO SCH ×2 (07:59→11:56)
[2021-07-29] MEDS: METOPROLOL TARTRATE 25 MG TAB PO SCH ×3 (08:01→16:03)
[2021-07-29] MEDS: SERTRALINE 50 MG TAB PO SCH ×3 (08:01→16:03)
[2021-07-29] MEDS: MULTIVITAMINS, THERA 1 EACH TAB PO SCH (08:06)
[2021-07-29] MEDS: ISOSORBIDE MONONITRATE ER 30 MG TAB.ER.24H PO SCH ×2 (08:06→12:03)
[2021-07-29] MEDS: PSYLLIUM HUSK 100% 6 GM PACKET PO SCH (08:07)
[2021-07-29] MEDS: ZINC SULFATE 220 MG CAP PO SCH (08:08)
[2021-07-29] MEDS: ENOXAPARIN 40 MG/0.4 ML SYRINGE SQ SCH (08:08)
[2021-07-29 08:21] LABS: Glucose,Whole Blood 59 mg/dL (75-99)
[2021-07-29] MEDS ORDERED: DEXTROSE 50% SYRINGE 50 ML IVP ONE (08:23)
[2021-07-29 08:34] LABS: Glucose,Whole Blood 143 mg/dL (75-99)
[2021-07-29 09:16] LABS: C Reactive Protein 7.7 mg/dL (<1.0)
--- NOTE | 2021-07-29 09:29 | XR ---
EXAMINATION TYPE: XR chest 1V portable DATE OF EXAM: 07/29/2021 COMPARISON: 07/28/2021 HISTORY: Cough TECHNIQUE: Single frontal view of the chest is obtained. FINDINGS: Bilateral subsegmental infiltrate at the lung bases. Heart size normal. Limited inspiratio n. No pneumothorax. Arthropathy of the shoulders. Diffuse osteopenia. Hypertrophic and degenerative c hange of the spine. IMPRESSION: 1. Bilateral infiltrate stable.
[2021-07-29 10:54] LABS: Basophils # (A) 0.02 X 10*3/uL (0.00-0.10); Basophils % (A) 0.2 %; Eosinophils # (A) 0 X 10*3/uL (0.04-0.35); Eosinophils % (A) 0 %; HCT 36.4 % (37.2-46.3); HGB 10.7 g/dL (12.0-15.0); Lymphocytes # (A) 1.69 X 10*3/uL (0.90-5.00); Lymphocytes % (A) 17.1 %; MCH 26.4 pg (27.0-32.0); MCHC 29.4 g/dL (32.0-37.0); MCV 89.9 fL (80.0-97.0); Mean Platelet Volume 12.2 fL (9.5-12.2); Monocytes # (A) 0.55 X 10*3/uL (0.20-1.00); Monocytes % (A) 5.6 %; Neutrophils # (A) 7.56 X 10*3/uL (1.80-7.70); Neutrophils % (A) 76.7 %; Platelet Count 178 X 10*3/uL (140-440); RBC 4.05 X 10*6/uL (4.10-5.20); RDW 14.8 % (11.5-14.5); WBC 9.86 X 10*3/uL (4.50-10.00)
[2021-07-29 12:01] LABS: Glucose,Whole Blood 172 mg/dL (75-99)
--- NOTE | 2021-07-29 14:02 | P.CNPUL ---
History of Present Illness Consult date: 07/29/21 Reason for consult: pneumonia History of present illness: 85-year-old female patient hospitalized for COVID 19 related pneumonia. The patient is a snf resident and she resides at [facility]. The patient has dementia, diabetes mellitus, hypertension, depression, and history of osteoarthritis. Normally, he is alert she is alert and oriented 1 and the patient needs care at all times. The patient was noted to have fever of 102 in addition to increased cough that was quite productive. The patient was unable to bring up much of sputum. There was also a reported history of body aches and pains and the patient was becoming more lethargic and delirious and mumbling. Noted the patient is unable to volunteer any history. The patient checked positive for COVID 19. UA. Also, her urine analysis was abnormal and t he patient may have an underlying urinary tract infection. For now, the patient's pro calcitonin level is at 0.12. D-dimer is at 4.14, the LDH level was 509 and the CRP level was 4.9. Sodium is at 139 with a BUN of 19 and a creatinine of 0.8 and the patient has a white cell count 9.8 with a hemoglobin of 10.7. The chest x-ray was repeated on 06/28/2021 and this was also compared to that she earlier chest x-ray that was done on 06/27/2021. Based on my review of the chest x-ray, the patient has smaller lung volumes. There was also some limited left basilar infiltrate. Otherwise no other acute abnormalities have been noted. For now, the patient is hospitalized. The patient is currently covered with a combination of IV Rocephin regarding possibility of urine checked infection, and Lovenox 40 mg subcu for DVT prophylaxis. Patient is currently on 2 L about 2 by nasal cannula with a pulse ox of 97%. No steroids have been offered to this patient. Meanwhile, the patient has been on Levemir insulin 35 units and the insulin was held today as the patient's blood sugar was running low. Outpatient medications of been all resume to her is pending for now. Blood cultures also pending. The patient was given a dose of Lasix 40 mg IV and the patient diuresed approximately 1900 mL of urine output. Review of Systems ROS unobtainable: due to mental status Past Medical History Past Medical History: Chest Pain / Angina, Dementia, Diabetes Mellitus, GERD/Reflux, Hypertension, Osteoarthritis (OA) History of Any Multi-Drug Resistant Organisms: ESBL, MRSA Date of last positivie culture/infection: 01/11/14 MRSA MDRO Source:: ESBL URINE, MRSA Buttock Past Surgical History: Cholecystectomy, Hysterectomy, Tonsillectomy Past Anesthesia/Blood Transfusion Reactions: No Reported Reaction Past Psychological History: Anxiety, Depression Smoking Status: Unknown if ever smoked Past Alcohol Use History: None Reported Past Drug Use History: None Reported - Past Family History Mother Family Medical History: Chest Pain / Angina, Diabetes Mellitus, Hypertension Medications and Allergies Home Medications Medication Instructions Recorded Confirmed Type Divalproex Sodium [Depakote] 125 mg PO BID 12/08/14 07/28/21 History Linagliptin [Tradjenta] 5 mg PO DAILY 12/08/14 07/28/21 History Metoprolol Tartrate [Lopressor] 50 mg PO BID@0800,1600 12/08/14 07/28/21 History Sertraline [Zoloft] 50 mg PO BID@0800,1600 12/08/14 07/28/21 History Aspirin EC [Ecotrin Low Dose] 81 mg PO DAILY 06/21/15 07/28/21 History clonazePAM [KlonoPIN] 0.5 mg PO HS #10 tab 06/27/15 07/28/21 Rx Acetaminophen [Tylenol] 650 mg PO Q8H PRN 10/13/16 07/28/21 History Cholecalciferol [Vitamin D3] 50 mcg PO DAILY 10/13/16 07/28/21 History Esomeprazole Magnesium [NexIUM] 40 mg PO HS 10/13/16 07/28/21 History Isosorbide Mononitrate ER [Imdur] 90 mg PO DAILY 10/13/16 07/28/21 History Memantine [Namenda] 10 mg PO HS 10/13/16 07/28/21 History Multivitamins, Thera [Multivitamin] 1 tab PO DAILY 10/13/16 07/28/21 History Ascorbic Acid [Vitamin C] 500 mg PO BID 07/28/21 07/28/21 History Cranberry Fruit Extract [Cranberry] 500 mg PO HS 07/28/21 07/28/21 History Ferrous Sulfate [Feosol] 325 mg PO DAILY 07/28/21 07/28/21 History Insulin Detemir [Levemir Flextouch 47 units SQ DAILY 07/28/21 07/28/21 History Pen] Pravastatin Sodium [Pravachol] 20 mg PO HS 07/28/21 07/28/21 History Psyllium Husk 100% [Metamucil 6 gm PO DAILY 07/28/21 07/28/21 History Packet] QUEtiapine FUMARATE [SEROquel] 200 mg PO HS 07/28/21 07/28/21 History QUEtiapine [SEROquel] 100 mg PO HS 07/28/21 07/28/21 History Repaglinide [Prandin] 1 mg PO TID@0700,1200,1700 07/28/21 07/28/21 History Sennosides/Docusate Sodium [Senna 1 tab PO BID 07/28/21 07/28/21 History Plus 8.6-50 mg Tablet] Allergies Allergy/AdvReac Type Severity Reaction Status Date / Time LEWIS Inhibitors Allergy Unknown Verified 07/28/21 09:33 codeine Allergy Unknown Verified 07/28/21 09:33 influenza virus vaccine, Allergy Unknown Verified 07/28/21 09:33 specific Macrolide Antibiotics Allergy Unknown Verified 07/28/21 09:33 metformin Allergy Unknown Verified 07/28/21 09:33 Penicillins Allergy Unknown Verified 07/28/21 09:33 Physical Exam Vitals: Vital Signs Temp Pulse Pulse Resp BP BP Pulse Ox 07/29/21 13:20 112 H 07/29/21 09:52 97 07/29/21 08:00 97.9 F 129 H 20 159/83 96 07/29/21 06:00 99.6 F 105 H 167/85 97 07/29/21 04:54 100.9 F H 100 17 151/68 97 07/29/21 00:15 98 18 124/78 95 07/28/21 19:58 108 H 18 119/67 95 07/28/21 14:00 98.8 F 104 H 18 144/72 94 L Intake and Output 07/28/21 07/29/21 07/29/21 22:59 06:59 14:59 Output Total 232 665 0375 Balance -800 -900 -1900 Output: Urine 543 [id number] [id number] Uretheral (Ledesma) 800 Other: Voiding Method Indwelling Catheter Indwelling Catheter # Bowel Movements 0 Weight 89.222 kg GENERAL: BMI 29.9, laying in bed a bit lethargic delirious. Breathing is nonlabored and the patient is currently on 2 L nasal cannula EYES: Pupils equal. Conjunctiva normal. HEENT: External appearance of nose and ears normal, oral cavity grossly normal. NECK: JVD not raised; masses not palpable. HEART: First and second heart sounds are normal; no edema. LUNGS: Respiratory rate increased, decreased breath sound expiratory crackles. ABDOMEN: Soft, nontender, liver spleen not palpable, no masses palpable. PSYCH: [Unable to assess patient somewhat delirious l. MUSCULAR skeletal: Evidence of OA in multiple joints NEUROLOGICAL: [Cranial nerves grossly intact; no facial asymmetry, moving limbs LYMPHATICS: No lymph nodes palpable in the axilla and neck Results - Laboratory Findings CBC and BMP: 07/29/21 06:50 07/29/21 06:50 PT/INR, D-dimer PT 11.8 sec (9.0-12.0) 07/28/21 03:05 INR 1.1 (<1.2) 07/28/21 03:05 D-Dimer 4.14 mg/L FEU (<0.60) H 07/29/21 06:50 Abnormal lab findings: Abnormal Labs 07/28/21 07/28/21 07/28/21 03:05 03:05 03:05 RBC 3.69 L Hgb 10.2 L Hct 30.4 L MCH MCHC RDW Lymphocytes # 0.6 L Eosinophils # APTT 21.1 L D-Dimer Sodium 134 L BUN 30 H Glucose 108 H POC Glucose (mg/dL) Calcium AST C-Reactive Protein 4.9 H Total Protein Albumin 2.8 L Procalcitonin Urine Appearance Urine pH Urine Protein Urine Blood Ur Leukocyte Esterase Urine RBC Urine WBC Urine WBC Clumps Urine Bacteria Urine Mucus Coronavirus (PCR) 07/28/21 07/28/21 07/28/21 03:55 12:18 15:30 RBC Hgb Hct MCH MCHC RDW Lymphocytes # Eosinophils # APTT D-Dimer 3.53 H Sodium BUN Glucose POC Glucose (mg/dL) Calcium AST C-Reactive Protein Total Protein Albumin Procalcitonin Urine Appearance Turbid H Urine pH 8.5 H Urine Protein 3+ H Urine Blood Small H Ur Leukocyte Esterase Large H Urine RBC >182 H Urine WBC >182 H Urine WBC Clumps Many H Urine Bacteria Many H Urine Mucus Rare H Coronavirus (PCR) Detected A 07/28/21 07/29/21 07/29/21 15:30 06:50 06:50 RBC 4.05 L Hgb 10.7 L Hct 36.4 L MCH 26.4 L MCHC 29.4 L RDW 14.8 H Lymphocytes # Eosinophils # 0 L APTT D-Dimer Sodium BUN 19 H Glucose 68 L POC Glucose (mg/dL) Calcium 7.6 L AST 39 H C-Reactive Protein 7.7 H Total Protein 6.2 L Albumin 2.6 L Procalcitonin 0.12 H Urine Appearance Urine pH Urine Protein Urine Blood Ur Leukocyte Esterase Urine RBC Urine WBC Urine WBC Clumps Urine Bacteria Urine Mucus Coronavirus (PCR) 07/29/21 07/29/21 07/29/21 06:50 07:20 08:20 RBC Hgb Hct MCH MCHC RDW Lymphocytes # Eosinophils # APTT D-Dimer 4.14 H Sodium BUN Glucose POC Glucose (mg/dL) 62 L 59 L Calcium AST C-Reactive Protein Total Protein Albumin Procalcitonin Urine Appearance Urine pH Urine Protein Urine Blood Ur Leukocyte Esterase Urine RBC Urine WBC Urine WBC Clumps Urine Bacteria Urine Mucus Coronavirus (PCR) 07/29/21 07/29/21 08:33 11:59 RBC Hgb Hct MCH MCHC RDW Lymphocytes # Eosinophils # APTT D-Dimer Sodium BUN Glucose POC Glucose (mg/dL) 143 H 172 H Calcium AST C-Reactive Protein Total Protein Albumin Procalcitonin Urine Appearance Urine pH Urine Protein Urine Blood Ur Leukocyte Esterase Urine RBC Urine WBC Urine WBC Clumps Urine Bacteria Urine Mucus Coronavirus (PCR) - Diagnostic Findings Chest x-ray: image reviewed Assessment and Plan Plan: 1 acute COVID 19 infection without any clear evidence of pneumonia. The patient is on 2 L of oxygen by nasal cannula and the pulse ox is around 97%. 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 Awaiting urine and blood cultures and the patient me was covered with IV Rocephin. No need for systemic steroids at this point in time. Monitor oxygenation. Currently on 2 L of oxygen by nasal cannula. She was given dose of Lasix 40 mg IV push with good diuresis. She is a full code for now. She is a snf resident and she typically resides at [facility]. She has had multiple UTIs in the past essentially with gram-negative bacteria most recent urine tract infection with degenerative 2020 with E. coli. This was an ESBL producing microorganism. Consider recurrence. She has also been infected with enterococcus in the past and addition to Proteus mirabilis.
[2021-07-29 17:01] LABS: Glucose,Whole Blood 198 mg/dL (75-99)
--- NOTE | 2021-07-29 17:09 | P.PN ---
Progress Note - Text Progress Note Date: 07/29/21 Chief Complaint: Fever This is a 85-year-old patient who follows with Dr. Velasco at [facility]. Chronic stable medical conditions include dementia, diabetes, GERD, hypertension, osteoarthritis, anxiety depression. Per the EMS run sheet patient was at the baseline mental status. Normally AO 2. Patient developed a fever 102 and a productive cough. Rapid COVID saw was negative. Patient had a very productive cough. Body aches and pains. Care is patient is somewhat delirious mumbling. Not able to give much of a history. r congestive cough. Patient did test positive for COVID. Admitted with COVID 19 pneumonitis, acute UTI with cystitis, sepsis, acute metabolic encephalopathy with delirium. On IV ceftriaxone. July 29: Patient has been spitting. Refusing to eat or drink. Laying in bed. Tired. Review of systems cannot be obtained as patient rather delirious Past medical history to include: Dementia, diabetes, GERD, hypertension, osteoarthritis, anxiety, depression Social history: Resident of [facility]. No history of smoking or alcohol reported. Family history: Diabetes, hypertension Physical examination: VITAL SIGNS: 98.2, 106, 19, 1 53 x 80, 93% on 2 L GENERAL: Laying in bed, awake, tired, congested cough EYES: Pupils equal. Conjunctiva normal. HEENT: External appearance of nose and ears normal, oral cavity grossly normal. NECK: JVD not raised; masses not palpable. HEART: First and second heart sounds are normal; no edema. LUNGS: Respiratory rate increased, decreased breath sound expiratory crackles. ABDOMEN: Soft, nontender, liver spleen not palpable, no masses palpable. PSYCH: [Unable to assess patient somewhat delirious l. MUSCULAR skeletal: Evidence of OA in multiple joints INVESTIGATIONS, reviewed in the clinical context: White count 6.7 hemoglobin 10.2 platelets 184 sodium 134 potassium 4.5 BUN 30 creatinine 0.87 CRP 4.9 UA positive for leukoesterase WBC bacteria Coronavirus [PCR]: Detected d-dimer 3.53 EKG tracing personally reviewed by me-sinus tachycardia. Rate 124 Chest x-ray film personally reviewed by me-possible infiltrate. Portable Assessment and plan: -Acute COVID 19 pneumonitis. Patient's pulse ox as above 94%. No steroids. Give vitamin C vitamin D zinc supplement. Subcu Lovenox -Acute UTI with cystitis IV ceftriaxone -Sepsis from pneumonitis and UTI IV fluids -Acute metabolic encephalopathy/delirium from sepsis: Some improvement Follow clinically -Anxiety depression otherwise specified Klonopin 0.5 mg daily at bedtime sotalol 50 mg twice a day Seroquel 200 mg daily at bedtime Seroquel 100 mg daily at bedtime -Hyperlipidemia Pravachol 20 mg daily at bedtime -Essential hypertension Lopressor 50 mg twice a day -Cognitive impairment likely from Alzheimer's dementia Namenda 10 mg daily at bedtime -Diabetes mellitus type 2 chronically on insulin Levemir 47 units subcu daily. Follow Accu-Cheks -GERD Nexium 40 mg daily at bedtime -Primary osteoarthritis multiple joints bilaterally Pain medications as needed Patient not eating drinking. Just about to come medications. Continue with supportive care. IV fluids. IV antibiotics.
[2021-07-29 20:19] LABS: Glucose,Whole Blood 195 mg/dL (75-99)
[2021-07-29] MEDS: clonazePAM 0.5 MG TAB PO SCH ×2 (20:42→22:19)
[2021-07-29] MEDS: MEMANTINE 10 MG TAB PO SCH ×2 (20:42→22:19)
[2021-07-30 07:12] LABS: Glucose,Whole Blood 87 mg/dL (75-99)
[2021-07-30] MEDS: INSULIN DETEMIR (LEVEMIR) 100 UNIT/ML SYR SQ SCH (07:19)
[2021-07-30] MEDS: METOPROLOL TARTRATE 25 MG TAB PO SCH ×2 (07:25→15:08)
[2021-07-30] MEDS: ISOSORBIDE MONONITRATE ER 30 MG TAB.ER.24H PO SCH (07:25)
[2021-07-30] MEDS: ZINC SULFATE 220 MG CAP PO SCH (07:25)
[2021-07-30] MEDS: DIVALPROEX SPRINKLE 125 MG CAP.SPRINK PO SCH ×2 (07:26→21:01)
[2021-07-30] MEDS: ASPIRIN 81 MG PO SCH (07:26)
[2021-07-30] MEDS: ASCORBIC ACID 500 MG TAB PO SCH ×2 (07:26→21:02)
[2021-07-30] MEDS: SENNOSIDES-DOCUSATE SODIUM 1 EACH TAB PO SCH ×2 (07:26→23:31)
[2021-07-30] MEDS: CHOLECALCIFEROL 25 MCG (1000 IU) TABLET PO SCH (07:26)
[2021-07-30] MEDS: SERTRALINE 50 MG TAB PO SCH ×2 (07:26→15:08)
[2021-07-30] MEDS: ENOXAPARIN 40 MG/0.4 ML SYRINGE SQ SCH (07:26)
[2021-07-30] MEDS: MULTIVITAMINS, THERA 1 EACH TAB PO SCH (07:26)
[2021-07-30] MEDS: PSYLLIUM HUSK 100% 6 GM PACKET PO SCH (07:44)
[2021-07-30] MEDS: SODIUM CHLORIDE 0.9% 1,000 ML IV SCH (07:45)
[2021-07-30 08:16] LABS: Basophils % (A) 0 %; Eosinophils % (A) 0 %; HCT 29.6 % (34.0-46.0); HGB 9.8 gm/dL (11.4-16.0); Lymphocytes # (A) 0.9 k/uL (1.0-4.8); Lymphocytes % (A) 10 %; MCV 84.8 fL (80.0-100.0); Mean Platelet Volume 9.3; Monocytes # (A) 0.7 k/uL (0-1.0); Monocytes % (A) 8 %; Neutrophils # (A) 7.6 k/uL (1.3-7.7); Neutrophils % (A) 81 %; Platelet Count 145 k/uL (150-450); RBC 3.49 m/uL (3.80-5.40); RDW 14.1 % (11.5-15.5); WBC 9.4 k/uL (3.8-10.6)
[2021-07-30 08:39] LABS: African American GFR (CKD) 59 (>60 ml/min/1.73 sqM); Anion Gap 7 mmol/L; Blood Urea Nitrogen 24 mg/dL (7-17); Calcium 7.4 mg/dL (8.4-10.2); Carbon Dioxide 26 mmol/L (22-30); Chloride 104 mmol/L (98-107); Glucose 75 mg/dL (74-99); Non-African American GFR(CKD) 51 (>60 ml/min/1.73 sqM); Potassium 3.6 mmol/L (3.5-5.1); Sodium 137 mmol/L (137-145)
[2021-07-30 11:41] LABS: Glucose,Whole Blood 113 mg/dL (75-99)
--- NOTE | 2021-07-30 13:38 | P.PN ---
Subjective Progress Note Date: 07/30/21 85-year-old female patient hospitalized for COVID 19 related pneumonia. The patient is a snf resident and she resides at [facility]. The patient has dementia, diabetes mellitus, hypertension, depression, and history of osteoarthritis. Normally, he is alert she is alert and oriented 1 and the patient needs care at all times. The patient was noted to have fever of 102 in addition to increased cough that was quite productive. The patient was unable to bring up much of sputum. There was also a reported history of body aches and pains and the patient was becoming more lethargic and delirious and mumbling. Noted the patient is unable to volunteer any history. The patient checked positive for COVID 19. UA. Also, her urine analysis was abnormal and the patient may have an underlying urinary tract infection. For now, the patient's pro calcitonin level is at 0.12. D-dimer is at 4.14, the LDH level was 509 and the CRP level was 4.9. Sodium is at 139 with a BUN of 19 and a creatinine of 0.8 and the patient has a white cell count 9.8 with a hemoglobin of 10.7. The chest x-ray was repeated on 06/28/2021 and this was also compared to that she earlier chest x-ray that was done on 06/27/2021. Based on my review of the chest x-ray, the patient has smaller lung volumes. There was also some limited left basilar infiltrate. Otherwise no other acute abnormalities have been noted. For now, the patient is hospitalized. The patient is currently covered with a combination of IV Rocephin regarding possibility of urine checked infection, and Lovenox 40 mg subcu for DVT prophylaxis. Patient is currently on 2 L about 2 by nasal cannula with a pulse ox of 97%. No steroids have been offered to this patient. Meanwhile, the patient has been on Levemir insulin 35 units and the insulin was held today as the patient's blood sugar was running low. Outpatient medications of been all resume to her is pending for now. Blood cultures also pending. The patient was given a dose of Lasix 40 mg IV and the patient diuresed approximately 1900 mL of urine output. On 07/30/2021, the patient is lethargic and sleepy. Nevertheless, her breathing is nonlabored. The patient is only a few liters of oxygen by nasal cannula and I was informed by the nursing staff that she can even come off oxygen. No significant cough or sputum production. She is laying comfortably in bed. As suspected, the patient had an underlying urinary tract infection. The patient had blood cultures sent and there is are negative. Urine cultures still pending for now. The white cell count of 9.4 with a hemoglobin of 9.8, renal function is stable. D-dimer is at 1.7. The patient remains on IV antibiotics and the patient is currently on IV Rocephin with the understanding that she may be potentially infected with a ESBL producing gram-negative bacteria. Final cultures and sensitivities are pending for now. She remains on Levemir insulin 35 units along with a sliding scale coverage. She is on Lovenox 40 mg subcu for DVT prophylaxis. Rest of the medication resumed from her home list.. Objective - Vital Signs Vital signs: Vital Signs Temp 100.3 F H 07/30/21 10:23 Pulse 87 07/30/21 10:23 Resp 17 07/30/21 10:23 BP 101/63 07/30/21 10:23 Pulse Ox 94 L 07/30/21 10:23 Intake & Output 07/29/21 07/30/21 07/30/21 18:59 06:59 18:59 Output Total 1900 300 Balance -1900 -300 Weight 89.222 kg Output: Urine 1900 300 Other: Voiding Method Indwelling Catheter Indwelling Catheter Indwelling Catheter - Exam GENERAL: BMI 29.9, laying in bed a bit lethargic delirious. Breathing is nonlabored and the patient is currently on 2 L nasal cannula EYES: Pupils equal. Conjunctiva normal. HEENT: External appearance of nose and ears normal, oral cavity grossly normal. NECK: JVD not raised; masses not palpable. HEART: First and second heart sounds are normal; no edema. LUNGS: Respiratory rate increased, decreased breath sound expiratory crackles. ABDOMEN: Soft, nontender, liver spleen not palpable, no masses palpable. PSYCH: [Unable to assess patient somewhat delirious l. MUSCULAR skeletal: Evidence of OA in multiple joints NEUROLOGICAL: [Cranial nerves grossly intact; no facial asymmetry, moving limbs LYMPHATICS: No lymph nodes palpable in the axilla and neck - Labs CBC & Chem 7: 07/30/21 07:35 07/30/21 07:35 Labs: Abnormal Lab Results - Last 24 Hours (Table) 07/29/21 07/29/21 07/30/21 Range/Units 16:59 20:16 07:35 RBC 3.49 L (3.80-5.40) m/uL Hgb 9.8 L (11.4-16.0) gm/dL Hct 29.6 L (34.0-46.0) % Plt Count 145 L (150-450) k/uL Lymphocytes # 0.9 L (1.0-4.8) k/uL D-Dimer (<0.60) mg/L FEU BUN (7-17) mg/dL POC Glucose (mg/dL) 198 H 195 H (75-99) mg/dL Calcium (8.4-10.2) mg/dL 07/30/21 07/30/21 07/30/21 Range/Units 07:35 07:35 11:40 RBC (3.80-5.40) m/uL Hgb (11.4-16.0) gm/dL Hct (34.0-46.0) % Plt Count (150-450) k/uL Lymphocytes # (1.0-4.8) k/uL D-Dimer 1.71 H (<0.60) mg/L FEU BUN 24 H (7-17) mg/dL POC Glucose (mg/dL) 113 H (75-99) mg/dL Calcium 7.4 L (8.4-10.2) mg/dL Microbiology - Last 24 Hours (Table) 07/28/21 05:20 Blood Culture - Preliminary Blood No Growth after 48 hours 07/28/21 05:05 Blood Culture - Preliminary Blood No Growth after 48 hours Assessment and Plan Plan: 1 acute COVID 19 infection without any clear evidence of pneumonia. The patient is on 2 L of oxygen by nasal cannula and the pulse ox is around 97%. Patient is saturating normally on room air oxygen 2 acute UTI, awaiting urine cultures and blood cultures and the patient is currently on IV Rocephin 3 dementia and the patient is a sn[facility] resident 4 diabetes mellitus 5 chronic anxiety and his depression 6 hypertension 7 dementia 8 osteoarthritis 9 history of recurrent UTIs including ESBL producing E. coli on 09/14/2020, and previous gram-negative bacteria with providencia, Proteus and enterococcus faecalis Plan Clinically stable and the patient has negative blood cultures and we are still awaiting urine cultures. Keep the patient on oxygen 2 L per minute nasal cannula Aspiration precautions. The patient requires assistance with feeding and her appetite and general is low. Continue supportive care and will continue to follow. Of interest will be urine cultures
[2021-07-30] MEDS: ACETAMINOPHEN TAB 325 MG TAB PO PRN ×2 (15:35→21:02)
[2021-07-30 15:59] LABS: Amorphous Sediment,Urine Occasional /hpf; Appearance,Urine Cloudy (Clear); Bacteria,Urine Occasional /hpf; Bilirubin,Urine Negative (Negative); Blood,Urine Large (Negative); Color,Urine Yellow; Glucose,Urine (UA) Negative (Negative); Hyaline Casts,Urine 19 /lpf (0-2); Ketones,Urine Trace (Negative); Leukocyte Esterase,Urine Large (Negative); Mucus,Urine Many /hpf; Nitrite,Urine Negative (Negative); PH, Urine 5.5 (5.0-8.0); Protein,Urine 2+ (Negative); RBC,Urine >182 /hpf (0-5); Specific Gravity,Urine 1.018 (1.001-1.035); Squamous Epithelial Cell,Urine 13 /hpf (0-4); Urobilinogen,Urine <2.0 mg/dL (<2.0); WBC,Urine >182 /hpf (0-5)
[2021-07-30 16:32] LABS: Glucose,Whole Blood 140 mg/dL (75-99)
--- NOTE | 2021-07-30 19:00 | P.PN ---
Progress Note - Text Progress Note Date: 07/30/21 Chief Complaint: Fever This is a 85-year-old patient who follows with Dr. Velasco at [facility]. Chronic stable medical conditions include dementia, diabetes, GERD, hypertension, osteoarthritis, anxiety depression. Per the EMS run sheet patient was at the baseline mental status. Normally AO 2. Patient developed a fever 102 and a productive cough. Rapid COVID swab was negative. had a very productive cough. Body aches and pains. patient is somewhat delirious mumbling. Not able to give much of a history. congestived cough. Patient did test positive for COVID. Admitted with COVID 19 pneumonitis, acute UTI with cystitis, sepsis, acute meta bolic encephalopathy with delirium. On IV ceftriaxone. July 29: Patient has been spitting. Refusing to eat or drink. Laying in bed. Tired. July 30: Patient's pulse ox was moving around 94%. Not eating much. Low- grade fever. Tired. On IV ceftriaxone. Review of systems cannot be obtained as patient rather delirious Active Medications Acetaminophen (Acetaminophen Tab 325 Mg Tab) 650 mg PO Q6HR PRN PRN Reason: Mild Pain or Fever > 100.5 Last Admin: 07/30/21 15:35 Dose: 650 mg Documented by: Al Hydroxide/Mg Hydroxide (Mag Hydrox/Al Hydrox/Simeth 30 Ml Cup) 15 ml PO Q6HR PRN PRN Reason: Indigestion Alprazolam (Alprazolam 0.25 Mg Tab) 0.25 mg PO Q6HR PRN PRN Reason: Anxiety Ascorbic Acid (Ascorbic Acid 500 Mg Tab) 500 mg PO BID [facility] Last Admin: 07/30/21 07:26 Dose: 500 mg Documented by: Aspirin (Aspirin 81 Mg) 81 mg PO DAILY [facility] Last Admin: 07/30/21 07:26 Dose: 81 mg Documented by: Calcium Carbonate/Glycine (Calcium Carbonate 500 Mg Chewable) 1,000 mg PO Q4HR PRN PRN Reason: Dyspepsia Cholecalciferol (Cholecalciferol 25 Mcg (1000 Iu) Tablet) 50 mcg PO DAILY [facility] Last Admin: 07/30/21 07:26 Dose: 50 mcg Documented by: Clonazepam (Clonazepam 0.5 Mg Tab) 0.5 mg PO HS [facility] Last Admin: 11/29/21 22:19 Dose: Not Given Documented by: Divalproex Sodium (Divalproex Sprinkle 125 Mg Cap.Sprink) 125 mg PO BID [facility] Last Admin: 07/30/21 07:26 Dose: 125 mg Documented by: Enoxaparin Sodium (Enoxaparin 40 Mg/0.4 Ml Syringe) 40 mg SQ DAILY [facility] Last Admin: 07/30/21 07:26 Dose: 40 mg Documented by: Sodium Chloride (Saline 0.9%) 1,000 mls @ 30 mls/hr IV .Q24H [facility] Last Admin: 07/30/21 07:45 Dose: Not Given Documented by: Ceftriaxone Sodium 1 gm/ (Sodium Chloride) 50 mls @ 100 mls/hr IVPB Q12HR [facility] Last Admin: 07/30/21 07:26 Dose: 100 mls/hr Documented by: Insulin Detemir (Insulin Detemir (Levemir) 100 Unit/Ml Syr) 35 unit SQ DAILY@0700 [facility] Last Admin: 07/30/21 07:19 Dose: Not Given Documented by: Isosorbide Mononitrate (Isosorbide Mononitrate Er 30 Mg Tab.Er.24h) 90 mg PO DAILY [facility] Last Admin: 07/30/21 07:25 Dose: 90 mg Documented by: Lactulose (Lactulose 20 Gm/30 Ml Cup) 20 gm PO DAILY PRN PRN Reason: Constipation Magnesium Hydroxide (Magnesium Hydroxide 2,400 Mg/10 Ml Cup) 2,400 mg PO DAILY PRN PRN Reason: Constipation Melatonin (Melatonin 3 Mg Tablet) 3 mg PO HS PRN PRN Reason: Insomnia Memantine (Memantine 10 Mg Tab) 10 mg PO HS [facility] Last Admin: 07/29/21 22:19 Dose: Not Given Documented by: Metoprolol Tartrate (Metoprolol Tartrate 25 Mg Tab) 25 mg PO BID@0800,1600 [facility] Last Admin: 07/30/21 15:08 Dose: 25 mg Documented by: Morphine Sulfate (Morphine Sulfate 4 Mg/Ml Syringe) 4 mg IV Q4HR PRN PRN Reason: Severe Pain Last Admin: 07/28/21 23:52 Dose: 4 mg Documented by: Multivitamins (Multivitamins, Thera 1 Each Tab) 1 each PO DAILY [facility] Last Admin: 07/30/21 07:26 Dose: 1 each Documented by: Naloxone HCl (Naloxone 0.4 Mg/Ml 1 Ml Vial) 0.2 mg IV Q2M PRN PRN Reason: Opioid Reversal Ondansetron HCl (Ondansetron 4 Mg/2 Ml Vial) 4 mg IVP Q8HR PRN PRN Reason: Nausea And Vomiting Last Admin: 07/28/21 23:56 Dose: 4 mg Documented by: Pantoprazole Sodium (Pantoprazole 40 Mg Tablet) 40 mg PO HS [facility] Last Admin: 07/29/21 22:19 Dose: Not Given Documented by: Pravastatin Sodium (Pravastatin Sodium 20 Mg Tab) 20 mg PO HS [facility] Last Admin: 07/29/21 20:42 Dose: 20 mg Documented by: Psyllium Hydrophilic Mucilloid (Psyllium Husk 100% 6 Gm Packet) 6 gm PO DAILY [facility] Last Admin: 07/30/21 07:44 Dose: Not Given Documented by: Quetiapine Fumarate (Quetiapine 200 Mg Tab) 200 mg PO [facility] Last Admin: 07/29/21 20:42 Dose: 200 mg Documented by: Senna/Docusate Sodium (Sennosides-Docusate Sodium 1 Each Tab) 1 each PO BID [facility] Last Admin: 07/30/21 07:26 Dose: 1 each Documented by: Sertraline HCl (Sertraline 50 Mg Tab) 50 mg PO BID@0800,1600 [facility] Last Admin: 07/30/21 15:08 Dose: 50 mg Documented by: Zinc Sulfate (Zinc Sulfate 220 Mg Cap) 220 mg PO DAILY [facility] Last Admin: 07/30/21 07:25 Dose: 220 mg Documented by: Past medical history to include: Dementia, diabetes, GERD, hypertension, osteoarthritis, anxiety, depression Social history: Resident of [facility]. No history of smoking or alcohol reported. Family history: Diabetes, hypertension Physical examination: VITAL SIGNS: 100.3, 87, 17, 10 1 x 63, 94% on 2 L GENERAL: Laying in bed, awake, tired, congested cough LUNGS: Respiratory rate increased, PSYCH: [Unable to assess patient somewhat delirious l. NEURO: Cranial labs grossly intact. Moving all 4 limbs Rest of the exam per pulmonary and nursing INVESTIGATIONS, reviewed in the clinical context: July 30: White count 9.4 hemoglobin 9.8 platelets 145 d-dimer 1.7 potassium 3.6 creatinine 1.02 White count 6.7 hemoglobin 10.2 platelets 184 sodium 134 potassium 4.5 BUN 30 creatinine 0.87 CRP 4.9 UA positive for leukoesterase WBC bacteria Coronavirus [PCR]: Detected d-dimer 3.53 EKG tracing personally reviewed by me-sinus tachycardia. Rate 124 Chest x-ray film personally reviewed by me-possible infiltrate. Portable Assessment and plan: -Acute COVID 19 pneumonitis. Patient's pulse ox as above 94%. No steroids. Give vitamin C vitamin D zinc supplement. Subcu Lovenox -Acute UTI with cystitis IV ceftriaxone -Sepsis from pneumonitis and UTI IV fluids -Acute metabolic encephalopathy/delirium from sepsis: Some improvement Follow clinically -Anxiety depression otherwise specified Klonopin 0.5 mg daily at bedtime Zoloft 50 mg twice a day Seroquel 200 mg daily at bedtime Seroquel 100 mg daily at bedtime -Hyperlipidemia Pravachol 20 mg daily at bedtime -Essential hypertension Lopressor 50 mg twice a day -Cognitive impairment likely from Alzheimer's dementia Namenda 10 mg daily at bedtime -Diabetes mellitus type 2 chronically on insulin Levemir 47 units subcu daily. Follow Accu-Cheks -GERD Nexium 40 mg daily at bedtime -Primary osteoarthritis multiple joints bilaterally Pain medications as needed Poor oral intake. Continue current medication treatment plan. Encourage by mouth intake. Check labs.
[2021-07-30 20:57] LABS: Glucose,Whole Blood 122 mg/dL (75-99)
[2021-07-30] MEDS: MEMANTINE 10 MG TAB PO SCH (21:01)
[2021-07-30] MEDS: clonazePAM 0.5 MG TAB PO SCH (21:01)
[2021-07-30] MEDS: PANTOPRAZOLE 40 MG TABLET PO SCH (21:02)
[2021-07-31 07:23] LABS: Glucose,Whole Blood 86 mg/dL (75-99)
[2021-07-31] MEDS: ASCORBIC ACID 500 MG TAB PO SCH ×2 (08:21→21:39)
[2021-07-31] MEDS: ZINC SULFATE 220 MG CAP PO SCH (08:21)
[2021-07-31] MEDS: DIVALPROEX SPRINKLE 125 MG CAP.SPRINK PO SCH ×2 (08:22→21:39)
[2021-07-31] MEDS: MULTIVITAMINS, THERA 1 EACH TAB PO SCH (08:22)
[2021-07-31] MEDS: SERTRALINE 50 MG TAB PO SCH ×2 (08:22→14:00)
[2021-07-31] MEDS: METOPROLOL TARTRATE 25 MG TAB PO SCH ×2 (08:22→14:00)
[2021-07-31] MEDS: SENNOSIDES-DOCUSATE SODIUM 1 EACH TAB PO SCH ×2 (08:22→21:39)
[2021-07-31] MEDS: ISOSORBIDE MONONITRATE ER 30 MG TAB.ER.24H PO SCH (08:22)
[2021-07-31] MEDS: CHOLECALCIFEROL 25 MCG (1000 IU) TABLET PO SCH (08:22)
[2021-07-31] MEDS: ASPIRIN 81 MG PO SCH (08:22)
[2021-07-31] MEDS: ENOXAPARIN 40 MG/0.4 ML SYRINGE SQ SCH (08:23)
[2021-07-31] MEDS: PSYLLIUM HUSK 100% 6 GM PACKET PO SCH (08:23)
[2021-07-31] MEDS: ACETAMINOPHEN TAB 325 MG TAB PO PRN ×2 (08:26→14:00)
[2021-07-31 08:28] LABS: African American GFR (CKD) 78 (>60 ml/min/1.73 sqM); Anion Gap 4 mmol/L; Blood Urea Nitrogen 25 mg/dL (7-17); Calcium 7.6 mg/dL (8.4-10.2); Carbon Dioxide 28 mmol/L (22-30); Chloride 106 mmol/L (98-107); Glucose 79 mg/dL (74-99); Non-African American GFR(CKD) 67 (>60 ml/min/1.73 sqM); Potassium 3.8 mmol/L (3.5-5.1); Sodium 138 mmol/L (137-145)
[2021-07-31] MEDS: INSULIN DETEMIR (LEVEMIR) 100 UNIT/ML SYR SQ SCH ×2 (08:32→21:41)
[2021-07-31 09:09] LABS: C Reactive Protein 14.1 mg/dL (<1.0)
[2021-07-31 11:41] LABS: Glucose,Whole Blood 146 mg/dL (75-99)
[2021-07-31] MEDS: IOPAMIDOL CONTRAST (ORAL USE) VIAL PO PRN ×2 (12:04→13:03)
[2021-07-31] MEDS: SODIUM CHLORIDE 0.9% 1,000 ML IV SCH (12:09)
--- NOTE | 2021-07-31 13:57 | CT ---
EXAMINATION TYPE: CT abdomen pelvis w con DATE OF EXAM: 07/31/2021 COMPARISON: To 317 HISTORY: Pain CT DLP: 1761 mGycm CONTRAST: CT scan of the abdomen and pelvis is performed with Oral Contrast and with IV Contrast, patient injec georges with 100 mL of Isovue 300. FINDINGS: LUNG BASES-: Basilar infiltrates and/or atelectasis with pleural effusions. LIVER/GB: The gallbladder is surgically absent. No space occupying hepatic lesion. Biliary tree is of normal caliber. PANCREAS: No inflammation. No distinct mass. SPLEEN: No splenic enlargement. No lesion seen. ADRENALS: No nodule. No thickening. KIDNEYS/BLADDER: No hydronephrosis. No nephrolithiasis. No distinct renal mass. Ledesma catheter is seen within the urinary bladder. BOWEL: Normal appendix. Normal bowel caliber. No inflammation. GENITAL ORGANS: No gross abnormality. LYMPH NODES: No greater than 1cm abdominal or pelvic lymph nodes are appreciated. AORTA: No significant abnormality. OSSEOUS STRUCTURES: No significant abnormality is seen. OTHER: Fat-containing ventral hernia. IMPRESSION: 1. No acute intra-abdominal process identified to account for the patient's symptoms. Fat-containing ventral hernia. Basilar atelectasis and/or infiltrates with effusions.
--- NOTE | 2021-07-31 16:38 | P.PN ---
Subjective Progress Note Date: 07/31/21 Principal diagnosis: COVID 19 85-year-old female patient hospitalized for COVID 19 related pneumonia. The patient is a senior care resident and she resides at [facility]. The patient has dementia, diabetes mellitus, hypertension, depression, and history of osteoarthritis. Normally, he is alert she is alert and oriented 1 and the patient needs care at all times. The patient was noted to have fever of 102 in addition to increased cough that was quite productive. The patient was unable to bring up much of sputum. There was also a reported history of body aches and pains and the patient was becoming more lethargic and delirious and mumbling. Noted the patient is unable to volunteer any history. The patient checked positive for COVID 19. UA. Also, her urine analysis was abnormal and the patient may have an underlying urinary tract infection. For now, the patient's pro calcitonin level is at 0.12. D-dimer is at 4.14, the LDH level was 509 and the CRP level was 4.9. Sodium is at 139 with a BUN of 19 and a creatinine of 0.8 and the patient has a white cell count 9.8 with a hemoglobin of 10.7. The chest x-ray was repeated on 06/28/2021 and this was also compared to that she earlier chest x-ray that was done on 06/27/2021. Based on my review of the chest x-ray, the patient has smaller lung volumes. There was also some limited left basilar infiltrate. Otherwise no other acute abnormalities have been noted. For now, the patient is hospitalized. The patient is currently covered with a combination of IV Rocephin regarding possibility of urine checked infection, and Lovenox 40 mg subcu for DVT prophylaxis. Patient is currently on 2 L about 2 by nasal cannula with a pulse ox of 97%. No steroids have been offered to this patient. Meanwhile, the patient has been on Levemir insulin 35 units and the insulin was held today as the patient's blood sugar was running low. Outpatient medications of been all resume to her is pending for now. Blood cultures also pending. The patient was given a dose of Lasix 40 mg IV and the patient diuresed approximately 1900 mL of urine output. On 07/30/2021, the patient is lethargic and sleepy. Nevertheless, her breathing is nonlabored. The patient is only a few liters of oxygen by nasal cannula and I was informed by the nursing staff that she can even come off oxygen. No significant cough or sputum production. She is laying comfortably in bed. As suspected, the patient had an underlying urinary tract infection. The patient had blood cultures sent and there is are negative. Urine cultures still pending for now. The white cell count of 9.4 with a hemoglobin of 9.8, renal function is stable. D-dimer is at 1.7. The patient remains on IV antibiotics and the patient is currently on IV Rocephin with the understanding that she may be potentially infected with a ESBL producing gram-negative bacteria. Final cultures and sensitivities are pending for now. She remains on Levemir insulin 35 units along with a sliding scale coverage. She is on Lovenox 40 mg subcu for DVT prophylaxis. Rest of the medication resumed from her home list. On 07/31/2021 patient seen in follow-up on medical surgical floor. She is resting comfortably in bed, she is asymptomatic from pulmonary perspective, her breathing is nonlabored, she is currently on 2 L of oxygen a pulse ox of 97%, albert hubbard does have a low-grade fever this morning, and she was febrile in the last 24 hours, with a T-max of 102.2F, patient was found to have urinary tract infection and she is currently on Rocephin awaiting final urine cultures, patient is known to have ESBL urinary tract infections in the past, current antibiotic coverage is with Rocephin. Today's labs have been reviewed, d-dimer is improved and is down to 1.37, electrolytes and renal profile are unremarkable, and her CRP is 14.1, her LDH on admission was non-elevated at 509, progressed on a level was 0.12. She was complaining of some abdominal pain, CT of the abdomen and pelvis was completed showing no acute intra-abdominal process, basilar atelectasis with effusions were noted. Objective - Vital Signs Vital signs: Vital Signs Temp 99.2 F 07/31/21 14:21 Pulse 77 07/31/21 14:21 Resp 18 07/31/21 14:21 BP 115/61 07/31/21 14:21 Pulse Ox 97 07/31/21 14:21 Intake & Output 07/30/21 07/31/21 07/31/21 18:59 06:59 18:59 Intake Total 6 Output Total 300 300 Balance -300 -300 6 Intake: Oral 6 Output: Urine 300 300 Other: Voiding Method Indwelling Catheter Indwelling Catheter Indwelling Catheter # Bowel Movements 0 - Exam GENERAL EXAM: Alert, pleasant, 85-year-old white female, on 2 L of oxygen sats at 97% comfortable in no apparent distress. HEAD: Normocephalic/atraumatic. EYES: Normal reaction of pupils, equal size. Conjunctiva pink, sclera white. NOSE: Clear with pink turbinates. THROAT: No erythema or exudates. NECK: No masses, no JVD, no thyroid enlargement, no adenopathy. CHEST: No chest wall deformity. Symmetrical expansion. LUNGS: Equal air entry with no crackles, wheeze, rhonchi or dullness. CVS: Regular rate and rhythm, normal S1 and S2, no gallops, no murmurs, no rubs ABDOMEN: Soft, nontender. No hepatosplenomegaly, normal bowel sounds, no guarding or rigidity. EXTREMITIES: No clubbing, no edema, no cyanosis, 2+ pulses and upper and lower extremities. MUSCULOSKELETAL: Muscle strength and tone normal. SPINE: No scoliosis or deformity SKIN: No rashes CENTRAL NERVOUS SYSTEM: Alert and oriented -3. No focal deficits, tone is normal in all 4 extremities. PSYCHIATRIC: Alert and oriented -3. Appropriate affect. Intact judgment and insight. - Labs CBC & Chem 7: 07/30/21 07:35 07/31/21 06:38 Labs: Abnormal Lab Results - Last 24 Hours (Table) 07/30/21 07/30/21 07/31/21 Range/Units 16:30 20:55 06:38 D-Dimer 1.37 H (<0.60) mg/L FEU BUN (7-17) mg/dL POC Glucose (mg/dL) 140 H 122 H (75-99) mg/dL Calcium (8.4-10.2) mg/dL C-Reactive Protein (<1.0) mg/dL 07/31/21 07/31/21 Range/Units 06:38 11:40 D-Dimer (<0.60) mg/L FEU BUN 25 H (7-17) mg/dL POC Glucose (mg/dL) 146 H (75-99) mg/dL Calcium 7.6 L (8.4-10.2) mg/dL C-Reactive Protein 14.1 H (<1.0) mg/dL Microbiology - Last 24 Hours (Table) 07/28/21 05:05 Blood Culture - Preliminary Blood No Growth after 72 hours 07/28/21 05:20 Blood Culture - Preliminary Blood No Growth after 72 hours 07/30/21 15:33 Urine Culture - Preliminary Urine,Voided Assessment and Plan Plan: Assessment: #1. Acute COVID-19 infection without any clear evidence of pneumonia, patient is currently 2 units of oxygen, and her pulse ox is around 97%, breathing comfortably, chest x-ray showed no evidence of acute pulmonary process on admission chest x-ray, subsequent chest x-ray showed bibasilar infiltrates, related to atelectasis with effusions. #2. Acute urinary tract infection, awaiting final urine cultures, currently covered with Rocephin #3. History of dementia, patient is a senior care resident #4. The patient. The #5. Chronic anxiety and depression #6. Hypertension #7. Osteoarthritis #8. History of ESBL producing E. coli, and previous gram-negative bacteria with potential, Proteus and enterococcus faecalis Donnie: Patient remains asymptomatic from pulmonary perspective CT of the abdomen and pelvis reviewed showing bibasilar atelectasis and small pleural effusions Provide incentive spirometer, instructed on the use, Vital signs are stable, obtain a room air pulse ox Awaiting final urine cultures Continue supportive medical treatment We'll monitor for worsening dyspnea or hypoxia I performed a history & physical examination of the patient and discussed their management with my nurse practitioner, Anh Freedman. I reviewed the nurse practitioner's note and agree with the documented findings and plan of care. Lung sounds are positive for basilar crackles throughout the lung nichols. The findings and the impression was discussed with the patient. I attest to the documentation by the nurse practitioner. Time with Patient: Less than 30
[2021-07-31 17:00] LABS: Glucose,Whole Blood 125 mg/dL (75-99)
--- NOTE | 2021-07-31 18:23 | P.PN ---
Progress Note - Text Progress Note Date: 07/31/21 Chief Complaint: Fever This is a 85-year-old patient who follows with Dr. Velasco at [facility]. Chronic stable medical conditions include dementia, diabetes, GERD, hypertension, osteoarthritis, anxiety depression. Per the EMS run sheet patient was at the baseline mental status. Normally AO 2. Patient developed a fever 102 and a productive cough. Rapid COVID swab was negative. had a very productive cough. Body aches and pains. patient is somewhat delirious mumbling. Not able to give much of a history. congestived cough. Patient did test positive for COVID. Admitted with COVID 19 pneumonitis, acute UTI with cystitis, sepsis, acute meta bolic encephalopathy with delirium. On IV ceftriaxone. July 29: Patient has been spitting. Refusing to eat or drink. Laying in bed. Tired. July 30: Patient's pulse ox was moving around 94%. Not eating much. Low- grade fever. Tired. On IV ceftriaxone. July 31: Laying in bed. Tired. Awake. Eating small amounts. Pulse ox 94% on 2 L on IV ceftriaxone. Add Decadron. Review of systems cannot be obtained as patient rather delirious Active Medications Acetaminophen (Acetaminophen Tab 325 Mg Tab) 650 mg PO Q6HR PRN PRN Reason: Mild Pain or Fever > 100.5 Last Admin: 07/31/21 14:00 Dose: 650 mg Documented by: Al Hydroxide/Mg Hydroxide (Mag Hydrox/Al Hydrox/Simeth 30 Ml Cup) 15 ml PO Q6HR PRN PRN Reason: Indigestion Alprazolam (Alprazolam 0.25 Mg Tab) 0.25 mg PO Q6HR PRN PRN Reason: Anxiety Ascorbic Acid (Ascorbic Acid 500 Mg Tab) 500 mg PO BID [facility] Last Admin: 07/31/21 08:21 Dose: 500 mg Documented by: Aspirin (Aspirin 81 Mg) 81 mg PO DAILY [facility] Last Admin: 07/31/21 08:22 Dose: 81 mg Documented by: Calcium Carbonate/Glycine (Calcium Carbonate 500 Mg Chewable) 1,000 mg PO Q4HR PRN PRN Reason: Dyspepsia Cholecalciferol (Cholecalciferol 25 Mcg (1000 Iu) Tablet) 50 mcg PO DAILY [facility] Last Admin: 07/31/21 08:22 Dose: 50 mcg Documented by: Clonazepam (Clonazepam 0.5 Mg Tab) 0.5 mg PO HS [facility] Last Admin: 07/30/21 21:01 Dose: 0.5 mg Documented by: Dexamethasone (Dexamethasone 2 Mg Tab) 6 mg PO DAILY [facility] Divalproex Sodium (Divalproex Sprinkle 125 Mg Cap.Sprink) 125 mg PO BID [facility] Last Admin: 07/31/21 08:22 Dose: 125 mg Documented by: Enoxaparin Sodium (Enoxaparin 40 Mg/0.4 Ml Syringe) 40 mg SQ DAILY [facility] Last Admin: 07/31/21 08:23 Dose: 40 mg Documented by: Sodium Chloride (Saline 0.9%) 1,000 mls @ 30 mls/hr IV .Q24H [facility] Last Admin: 07/31/21 12:09 Dose: 30 mls/hr Documented by: Ceftriaxone Sodium 1 gm/ (Sodium Chloride) 50 mls @ 100 mls/hr IVPB Q12HR [facility] Last Admin: 07/31/21 08:23 Dose: 100 mls/hr Documented by: Insulin Detemir (Insulin Detemir (Levemir) 100 Unit/Ml Syr) 35 unit SQ DAILY@0700 [facility] Last Admin: 07/31/21 08:32 Dose: 10 unit Documented by: Isosorbide Mononitrate (Isosorbide Mononitrate Er 30 Mg Tab.Er.24h) 90 mg PO DAILY [facility] Last Admin: 07/31/21 08:22 Dose: 90 mg Documented by: Lactulose (Lactulose 20 Gm/30 Ml Cup) 20 gm PO DAILY PRN PRN Reason: Constipation Magnesium Hydroxide (Magnesium Hydroxide 2,400 Mg/10 Ml Cup) 2,400 mg PO DAILY PRN PRN Reason: Constipation Melatonin (Melatonin 3 Mg Tablet) 3 mg PO HS PRN PRN Reason: Insomnia Memantine (Memantine 10 Mg Tab) 10 mg PO HS [facility] Last Admin: 07/30/21 21:01 Dose: 10 mg Documented by: Metoprolol Tartrate (Metoprolol Tartrate 25 Mg Tab) 25 mg PO BID@0800,1600 [facility] Last Admin: 07/31/21 14:00 Dose: 25 mg Documented by: Multivitamins (Multivitamins, Thera 1 Each Tab) 1 each PO DAILY [facility] Last Admin: 07/31/21 08:22 Dose: 1 each Documented by: Naloxone HCl (Naloxone 0.4 Mg/Ml 1 Ml Vial) 0.2 mg IV Q2M PRN PRN Reason: Opioid Reversal Ondansetron HCl (Ondansetron 4 Mg/2 Ml Vial) 4 mg IVP Q8HR PRN PRN Reason: Nausea And Vomiting Last Admin: 07/28/21 23:56 Dose: 4 mg Documented by: Pantoprazole Sodium (Pantoprazole 40 Mg Tablet) 40 mg PO [facility] Last Admin: 07/30/21 21:02 Dose: 40 mg Documented by: Pravastatin Sodium (Pravastatin Sodium 20 Mg Tab) 20 mg PO HS [facility] Last Admin: 07/29/21 20:42 Dose: 20 mg Documented by: Psyllium Hydrophilic Mucilloid (Psyllium Husk 100% 6 Gm Packet) 6 gm PO DAILY [facility] Last Admin: 07/31/21 08:23 Dose: 6 gm Documented by: Quetiapine Fumarate (Quetiapine 200 Mg Tab) 200 mg PO [facility] Last Admin: 07/29/21 20:42 Dose: 200 mg Documented by: Senna/Docusate Sodium (Sennosides-Docusate Sodium 1 Each Tab) 1 each PO BID [facility] Last Admin: 07/31/21 08:22 Dose: 1 each Documented by: Sertraline HCl (Sertraline 50 Mg Tab) 50 mg PO BID@0800,1600 [facility] Last Admin: 07/31/21 14:00 Dose: 50 mg Documented by: Zinc Sulfate (Zinc Sulfate 220 Mg Cap) 220 mg PO DAILY [facility] Last Admin: 07/31/21 08:21 Dose: 220 mg Documented by: Past medical history to include: Dementia, diabetes, GERD, hypertension, osteoarthritis, anxiety, depression Social history: Resident of [facility]. No history of smoking or alcohol reported. Family history: Diabetes, hypertension Physical examination: VITAL SIGNS: 99.8, 89, 17, 112/53, 90% on 2 L GENERAL: Laying in bed, awake, tired, congested cough LUNGS: Respiratory rate increased, PSYCH: [Unable to assess patient somewhat delirious l. NEURO: Cranial labs grossly intact. Moving all 4 limbs Rest of the exam per pulmonary and nursing INVESTIGATIONS, reviewed in the clinical context: July 31: D-dimer 1.37 potassium 3.8 creatinine 0.81 CRP 14.1 July 30: White count 9.4 hemoglobin 9.8 platelets 145 d-dimer 1.7 potassium 3.6 creatinine 1.02 White count 6.7 hemoglobin 10.2 platelets 184 sodium 134 potassium 4.5 BUN 30 creatinine 0.87 CRP 4.9 UA positive for leukoesterase WBC bacteria Coronavirus [PCR]: Detected d-dimer 3.53 EKG tracing personally reviewed by me-sinus tachycardia. Rate 124 Chest x-ray film personally reviewed by me-possible infiltrate. Portable Assessment and plan: -Acute COVID 19 pneumonitis. Pulse ox was dropping to 90% at times. We'll add dexamethasone.. Give vitamin C vitamin D zinc supplement. Subcu Lovenox -Acute UTI with cystitis. Urine culture unremarkable IV ceftriaxone -Sepsis from pneumonitis and UTI IV fluids -Acute metabolic encephalopathy/delirium from sepsis: Some improvement Follow clinically -Anxiety depression otherwise specified Klonopin 0.5 mg daily at bedtime Zoloft 50 mg twice a day Seroquel 200 mg daily at bedtime Seroquel 100 mg daily at bedtime -Hyperlipidemia Pravachol 20 mg daily at bedtime -Essential hypertension Lopressor 50 mg twice a day -Cognitive impairment likely from Alzheimer's dementia Namenda 10 mg daily at bedtime -Diabetes mellitus type 2 chronically on insulin Levemir 15 units subcu daily at bedtime. Follow Accu-Cheks -GERD Nexium 40 mg daily at bedtime -Primary osteoarthritis multiple joints bilaterally Pain medications as needed Add dexamethasone. Oxygen support. Other medications to continue. Levemir 15 units subcu daily at bedtime. Prognosis guarded.
[2021-07-31] MEDS: dexAMETHasone 2 MG TAB PO SCH (18:28)
[2021-07-31 20:16] LABS: Glucose,Whole Blood 122 mg/dL (75-99)
[2021-07-31] MEDS: MEMANTINE 10 MG TAB PO SCH (21:38)
[2021-07-31] MEDS: PANTOPRAZOLE 40 MG TABLET PO SCH (21:39)
[2021-07-31] MEDS: clonazePAM 0.5 MG TAB PO SCH (21:39)
[2021-07-31] MEDS: QUEtiapine 200 MG TAB PO SCH (21:39)
[2021-07-31] MEDS: PRAVASTATIN SODIUM 20 MG TAB PO SCH (21:39)
[2021-08-01 07:20] LABS: Glucose,Whole Blood 158 mg/dL (75-99)
[2021-08-01] MEDS: ZINC SULFATE 220 MG CAP PO SCH (08:11)
[2021-08-01] MEDS: MULTIVITAMINS, THERA 1 EACH TAB PO SCH (08:11)
[2021-08-01] MEDS: ASCORBIC ACID 500 MG TAB PO SCH ×2 (08:12→22:21)
[2021-08-01] MEDS: SENNOSIDES-DOCUSATE SODIUM 1 EACH TAB PO SCH ×2 (08:12→22:20)
[2021-08-01] MEDS: METOPROLOL TARTRATE 25 MG TAB PO SCH ×2 (08:12→16:18)
[2021-08-01] MEDS: SERTRALINE 50 MG TAB PO SCH ×2 (08:12→16:18)
[2021-08-01] MEDS: DIVALPROEX SPRINKLE 125 MG CAP.SPRINK PO SCH ×2 (08:12→22:20)
[2021-08-01] MEDS: ASPIRIN 81 MG PO SCH (08:12)
[2021-08-01] MEDS: CHOLECALCIFEROL 25 MCG (1000 IU) TABLET PO SCH (08:13)
[2021-08-01] MEDS: dexAMETHasone 2 MG TAB PO SCH (08:13)
[2021-08-01] MEDS: ISOSORBIDE MONONITRATE ER 30 MG TAB.ER.24H PO SCH (08:13)
[2021-08-01] MEDS: ENOXAPARIN 40 MG/0.4 ML SYRINGE SQ SCH (08:14)
[2021-08-01] MEDS: PSYLLIUM HUSK 100% 6 GM PACKET PO SCH (08:14)
[2021-08-01] MEDS: ACETAMINOPHEN TAB 325 MG TAB PO PRN (08:16)
[2021-08-01 09:15] LABS: Basophils % (A) 0 %; Eosinophils % (A) 0 %; HCT 30.2 % (34.0-46.0); Lymphocytes # (A) 0.4 k/uL (1.0-4.8); Lymphocytes % (A) 19 %; MCHC 33.2 g/dL (31.0-37.0); MCV 84.6 fL (80.0-100.0); Mean Platelet Volume 9.5; Monocytes # (A) 0.2 k/uL (0-1.0); Monocytes % (A) 10 %; Neutrophils # (A) 1.3 k/uL (1.3-7.7); Neutrophils % (A) 69 %; Platelet Count 117 k/uL (150-450); RBC 3.57 m/uL (3.80-5.40); RDW 14.3 % (11.5-15.5); WBC 1.9 k/uL (3.8-10.6)
[2021-08-01 12:03] LABS: Glucose,Whole Blood 177 mg/dL (75-99)
[2021-08-01] MEDS: SODIUM CHLORIDE 0.9% 1,000 ML IV SCH (12:06)
--- NOTE | 2021-08-01 13:16 | P.PN ---
Subjective Progress Note Date: 08/01/21 85-year-old female patient hospitalized for COVID 19 related pneumonia. The patient is a [facility] resident and she resides at [facility]. The patient has dementia, diabetes mellitus, hypertension, depression, and history of osteoarthritis. Normally, he is alert she is alert and oriented 1 and the patient needs care at all times. The patient was noted to have fever of 102 in addition to increased cough that was quite productive. The patient was unable to bring up much of sputum. There was also a reported history of body aches and pains and the patient was becoming more lethargic and delirious and mumbling. Noted the patient is unable to volunteer any history. The patient checked positive for COVID 19. UA. Also, her urine analysis was abnormal and the patient may have an underlying urinary tract infection. For now, the patient's pro calcitonin level is at 0.12. D-dimer is at 4.14, the LDH level was 509 and the CRP level was 4.9. Sodium is at 139 with a BUN of 19 and a creatinine of 0.8 and the patient has a white cell count 9.8 with a hemoglobin of 10.7. The chest x-ray was repeated on 06/28/2021 and this was also compared to that she earlier chest x-ray that was done on 06/27/2021. Based on my review of the chest x-ray, the patient has smaller lung volumes. There was also some limited left basilar infiltrate. Otherwise no other acute abnormalities have been noted. For now, the patient is hospitalized. The patient is currently covered with a combination of IV Rocephin regarding possibility of urine checked infection, and Lovenox 40 mg subcu for DVT prophylaxis. Patient is currently on 2 L about 2 by nasal cannula with a pulse ox of 97%. No steroids have been offered to this patient. Meanwhile, the patient has been on Levemir insulin 35 units and the insulin was held today as the patient's blood sugar was running low. Outpatient medications of been all resume to her is pending for now. Blood cultures also pending. The patient was given a dose of Lasix 40 mg IV and the patient diuresed approximately 1900 mL of urine output. On 07/30/2021, the patient is lethargic and sleepy. Nevertheless, her breathing is nonlabored. The patient is only a few liters of oxygen by nasal cannula and I was informed by the nursing staff that she can even come off oxygen. No significant cough or sputum production. She is laying comfortably in bed. As suspected, the patient had an underlying urinary tract infection. The patient had blood cultures sent and there is are negative. Urine cultures still pending for now. The white cell count of 9.4 with a hemoglobin of 9.8, renal function is stable. D-dimer is at 1.7. The patient remains on IV antibiotics and the patient is currently on IV Rocephin with the understanding that she may be potentially infected with a ESBL producing gram-negative bacteria. Final cultures and sensitivities are pending for now. She remains on Levemir insulin 35 units along with a sliding scale coverage. She is on Lovenox 40 mg subcu for DVT prophylaxis. Rest of the medication resumed from her home list. On 07/31/2021 patient seen in follow-up on medical surgical floor. She is resting comfortably in bed, she is asymptomatic from pulmonary perspective, her breathing is nonlabored, she is currently on 2 L of oxygen a pulse ox of 97%, she does have a low-grade fever this morning, and she was febrile in the last 24 hours, with a T-max of 102.2F, patient was found to have urinary tract infe ction and she is currently on Rocephin awaiting final urine cultures, patient is known to have ESBL urinary tract infections in the past, current antibiotic coverage is with Rocephin. Today's labs have been reviewed, d-dimer is improved and is down to 1.37, electrolytes and renal profile are unremarkable, and her CRP is 14.1, her LDH on admission was non-elevated at 509, progressed on a level was 0.12. She was complaining of some abdominal pain, CT of the abdomen and pelvis was completed showing no acute intra-abdominal process, basilar atelectasis with effusions were noted. 08/01/2021, the patient is being seen for a follow-up.Her breathing is comfortable and she is on 2 L of oxygen by nasal cannula. She is resting comfortably in bed. No signs of any respiratory distress. She has a Ledesma catheter in place. Urine cultures came back negative for now. Meanwhile, the white cell count is at 1.9 with a hemoglobin of 10 and a platelet count of 117. D-dimer is at 0.88. No other significant events otherwise for now. The plan is to ultimately released this patient back [facility]. Objective - Vital Signs Vital signs: Vital Signs Temp 98.1 F 08/01/21 10:00 Pulse 93 08/01/21 10:00 Resp 20 08/01/21 10:00 BP 115/66 08/01/21 10:00 Pulse Ox 96 08/01/21 10:00 Intake & Output 07/31/21 08/01/21 08/01/21 18:59 06:59 18:59 Intake Total 6 Balance 6 Intake: Oral 6 Other: Voiding Method Indwelling Catheter Indwelling Catheter Indwelling Catheter # Voids 600 # Bowel Movements 1 1 - Exam GENERAL: BMI 29.9, laying in bed a bit lethargic delirious. Breathing is nonlabored and the patient is currently on 2 L nasal cannula EYES: Pupils equal. Conjunctiva normal. HEENT: External appearance of nose and ears normal, oral cavity grossly normal. NECK: JVD not raised; masses not palpable. HEART: First and second heart sounds are normal; no edema. LUNGS: Respiratory rate increased, decreased breath sound expiratory crackles. ABDOMEN: Soft, nontender, liver spleen not palpable, no masses palpable. PSYCH: [Unable to assess patient somewhat delirious l. MUSCULAR skeletal: Evidence of OA in multiple joints NEUROLOGICAL: [Cranial nerves grossly intact; no facial asymmetry, moving limbs LYMPHATICS: No lymph nodes palpable in the axilla and neck - Labs CBC & Chem 7: 08/01/21 07:54 07/31/21 06:38 Labs: Abnormal Lab Results - Last 24 Hours (Table) 07/31/21 07/31/21 08/01/21 Range/Units 16:59 20:13 07:18 WBC (3.8-10.6) k/uL RBC (3.80-5.40) m/uL Hgb (11.4-16.0) gm/dL Hct (34.0-46.0) % Plt Count (150-450) k/uL Lymphocytes # (1.0-4.8) k/uL D-Dimer (<0.60) mg/L FEU POC Glucose (mg/dL) 125 H 122 H 158 H (75-99) mg/dL C-Reactive Protein (<1.0) mg/dL 08/01/21 08/01/21 08/01/21 Range/Units 07:54 07:54 07:54 WBC 1.9 L (3.8-10.6) k/uL RBC 3.57 L (3.80-5.40) m/uL Hgb 10.0 L (11.4-16.0) gm/dL Hct 30.2 L (34.0-46.0) % Plt Count 117 L (150-450) k/uL Lymphocytes # 0.4 L (1.0-4.8) k/uL D-Dimer 0.88 H (<0.60) mg/L FEU POC Glucose (mg/dL) (75-99) mg/dL C-Reactive Protein 5.5 H (<1.0) mg/dL 08/01/21 Range/Units 12:01 WBC (3.8-10.6) k/uL RBC (3.80-5.40) m/uL Hgb (11.4-16.0) gm/dL Hct (34.0-46.0) % Plt Count (150-450) k/uL Lymphocytes # (1.0-4.8) k/uL D-Dimer (<0.60) mg/L FEU POC Glucose (mg/dL) 177 H (75-99) mg/dL C-Reactive Protein (<1.0) mg/dL Microbiology - Last 24 Hours (Table) 07/28/21 05:05 Blood Culture - Preliminary Blood No Growth after 96 hours 07/28/21 05:20 Blood Culture - Preliminary Blood No Growth after 96 hours 07/30/21 15:33 Urine Culture - Final Urine,Voided Assessment and Plan Plan: #1. Acute COVID-19 infection without any clear evidence of pneumonia, patient is currently 2 units of oxygen, and her pulse ox is around 97%, breathing comfortably, chest x-ray showed no evidence of acute pulmonary process on admission chest x-ray, subsequent chest x-ray showed bibasilar infiltrates, related to atelectasis with effusions. #2. Acute urinary tract infection, awaiting final urine cultures, currently covered with Rocephin will sign off the case #3. History of dementia, patient is a detention resident #4. The patient. The #5. Chronic anxiety and depression #6. Hypertension #7. Osteoarthritis #8. History of ESBL producing E. coli, and previous gram-negative bacteria with potential, Proteus and enterococcus faecalis Donnie: Patient remains asymptomatic from pulmonary perspective CT of the abdomen and pelvis reviewed showing bibasilar atelectasis and small pleural effusions Provide incentive spirometer, instructed on the use, Vital signs are stable, obtain a room air pulse ox Awaiting final urine cultures adnd the cx is negative Continue supportive medical treatment We'll monitor for worsening dyspnea or hypoxia, she is on 02 at 2 liters will sign off the case and the patient is doing back to the [place]
[2021-08-01 16:47] LABS: Glucose,Whole Blood 184 mg/dL (75-99)
--- NOTE | 2021-08-01 18:34 | P.PN ---
Progress Note - Text Progress Note Date: 08/01/21 Chief Complaint: Fever This is a 85-year-old patient who follows with Dr. Velasco at [facility]. Chronic stable medical conditions include dementia, diabetes, GERD, hypertension, osteoarthritis, anxiety depression. Per the EMS run sheet patient was at the baseline mental status. Normally AO 2. Patient developed a fever 102 and a productive cough. Rapid COVID swab was negative. had a very productive cough. Body aches and pains. patient is somewhat delirious mumbling. Not able to give much of a history. congestived cough. Patient did test positive for COVID. Admitted with COVID 19 pneumonitis, acute UTI with cystitis, sepsis, acute meta bolic encephalopathy with delirium. On IV ceftriaxone. July 29: Patient has been spitting. Refusing to eat or drink. Laying in bed. Tired. July 30: Patient's pulse ox was moving around 94%. Not eating much. Low- grade fever. Tired. On IV ceftriaxone. July 31: Laying in bed. Tired. Awake. Eating small amounts. Pulse ox 94% on 2 L on IV ceftriaxone. Add Decadron. August 01: Breathing better. 96% on 2 L. Eating small amounts. Tired. Change IV ceftriaxone to Omnicef. Review of systems cannot be obtained as patient rather delirious Active Medications Acetaminophen (Acetaminophen Tab 325 Mg Tab) 650 mg PO Q6HR PRN PRN Reason: Mild Pain or Fever > 100.5 Last Admin: 08/01/21 08:16 Dose: 650 mg Documented by: Al Hydroxide/Mg Hydroxide (Mag Hydrox/Al Hydrox/Simeth 30 Ml Cup) 15 ml PO Q6HR PRN PRN Reason: Indigestion Alprazolam (Alprazolam 0.25 Mg Tab) 0.25 mg PO Q6HR PRN PRN Reason: Anxiety Ascorbic Acid (Ascorbic Acid 500 Mg Tab) 500 mg PO BID [facility] Last Admin: 08/01/21 08:12 Dose: 500 mg Documented by: Aspirin (Aspirin 81 Mg) 81 mg PO DAILY [facility] Last Admin: 08/01/21 08:12 Dose: 81 mg Documented by: Calcium Carbonate/Glycine (Calcium Carbonate 500 Mg Chewable) 1,000 mg PO Q4HR PRN PRN Reason: Dyspepsia Cholecalciferol (Cholecalciferol 25 Mcg (1000 Iu) Tablet) 50 mcg PO DAILY [facility] Last Admin: 08/01/21 08:13 Dose: 50 mcg Documented by: Clonazepam (Clonazepam 0.5 Mg Tab) 0.5 mg PO HS [facility] Last Admin: 07/31/21 21:39 Dose: 0.5 mg Documented by: Dexamethasone (Dexamethasone 2 Mg Tab) 6 mg PO DAILY [facility] Last Admin: 08/01/21 08:13 Dose: 6 mg Documented by: Divalproex Sodium (Divalproex Sprinkle 125 Mg Cap.Sprink) 125 mg PO BID [facility] Last Admin: 08/01/21 08:12 Dose: 125 mg Documented by: Enoxaparin Sodium (Enoxaparin 40 Mg/0.4 Ml Syringe) 40 mg SQ DAILY [facility] Last Admin: 08/01/21 08:14 Dose: 40 mg Documented by: Sodium Chloride (Saline 0.9%) 1,000 mls @ 30 mls/hr IV .Q24H [facility] Last Admin: 08/01/21 12:06 Dose: 30 mls/hr Documented by: Ceftriaxone Sodium 1 gm/ (Sodium Chloride) 50 mls @ 100 mls/hr IVPB Q12HR [facility] Last Admin: 08/01/21 08:14 Dose: 100 mls/hr Documented by: Insulin Detemir (Insulin Detemir (Levemir) 100 Unit/Ml Syr) 15 unit SQ HS [facility] Last Admin: 07/31/21 21:41 Dose: 15 unit Documented by: Isosorbide Mononitrate (Isosorbide Mononitrate Er 30 Mg Tab.Er.24h) 90 mg PO DAILY [facility] Last Admin: 08/01/21 08:13 Dose: 90 mg Documented by: Lactulose (Lactulose 20 Gm/30 Ml Cup) 20 gm PO DAILY PRN PRN Reason: Constipation Magnesium Hydroxide (Magnesium Hydroxide 2,400 Mg/10 Ml Cup) 2,400 mg PO DAILY PRN PRN Reason: Constipation Melatonin (Melatonin 3 Mg Tablet) 3 mg PO HS PRN PRN Reason: Insomnia Memantine (Memantine 10 Mg Tab) 10 mg PO HS [facility] Last Admin: 07/31/21 21:38 Dose: 10 mg Documented by: Metoprolol Tartrate (Metoprolol Tartrate 25 Mg Tab) 25 mg PO BID@0800,1600 [facility] Last Admin: 08/01/21 16:18 Dose: 25 mg Documented by: Multivitamins (Multivitamins, Thera 1 Each Tab) 1 each PO DAILY [facility] Last Admin: 08/01/21 08:11 Dose: 1 each Documented by: Naloxone HCl (Naloxone 0.4 Mg/Ml 1 Ml Vial) 0.2 mg IV Q2M PRN PRN Reason: Opioid Reversal Ondansetron HCl (Ondansetron 4 Mg/2 Ml Vial) 4 mg IVP Q8HR PRN PRN Reason: Nausea And Vomiting Last Admin: 07/28/21 23:56 Dose: 4 mg Documented by: Pantoprazole Sodium (Pantoprazole 40 Mg Tablet) 40 mg PO [facility] Last Admin: 07/31/21 21:39 Dose: 40 mg Documented by: Pravastatin Sodium (Pravastatin Sodium 20 Mg Tab) 20 mg PO [facility] Last Admin: 07/31/21 21:39 Dose: 20 mg Documented by: Psyllium Hydrophilic Mucilloid (Psyllium Husk 100% 6 Gm Packet) 6 gm PO DAILY [facility] Last Admin: 08/01/21 08:14 Dose: 6 gm Documented by: Quetiapine Fumarate (Quetiapine 200 Mg Tab) 200 mg PO HS [facility] Last Admin: 07/31/21 21:39 Dose: 200 mg Documented by: Senna/Docusate Sodium (Sennosides-Docusate Sodium 1 Each Tab) 1 each PO BID [facility] Last Admin: 08/01/21 08:12 Dose: 1 each Documented by: Sertraline HCl (Sertraline 50 Mg Tab) 50 mg PO BID@0800,1600 [facility] Last Admin: 08/01/21 16:18 Dose: 50 mg Documented by: Zinc Sulfate (Zinc Sulfate 220 Mg Cap) 220 mg PO DAILY [facility] Last Admin: 08/01/21 08:11 Dose: 220 mg Documented by: Past medical history to include: Dementia, diabetes, GERD, hypertension, osteoarthritis, anxiety, depression Social history: Resident of [facility]. No history of smoking or alcohol reported. Family history: Diabetes, hypertension Physical examination: VITAL SIGNS: 97.1, 78, 18, 150/77, 96% on 2 L GENERAL: Reclining in bed, awake, tired, LUNGS: Respiratory rate increased, PSYCH: Answering simple questions. NEURO: Cranial nerves grossly intact. Moving all 4 limbs Rest of the exam per pulmonary and nursing INVESTIGATIONS, reviewed in the clinical context: August 01: WBC 1.9 hemoglobin 10 d-dimer 0.88 CRP 5.5 July 31: D-dimer 1.37 potassium 3.8 creatinine 0.81 CRP 14.1 July 30: White count 9.4 hemoglobin 9.8 platelets 145 d-dimer 1.7 potassium 3.6 creatinine 1.02 White count 6.7 hemoglobin 10.2 platelets 184 sodium 134 potassium 4.5 BUN 30 creatinine 0.87 CRP 4.9 UA positive for leukoesterase WBC bacteria Coronavirus [PCR]: Detected d-dimer 3.53 EKG tracing personally reviewed by me-sinus tachycardia. Rate 124 Chest x-ray film personally reviewed by me-possible infiltrate. Portable Assessment and plan: -Acute COVID 19 pneumonitis. dexamethasone.. Give vitamin C vitamin D zinc supplement. Subcu Lovenox -Acute UTI with cystitis. Urine culture unremarkable IV ceftriaxone. Changed to Omnicef -Sepsis from pneumonitis and UTI IV fluids -Acute metabolic encephalopathy/delirium from sepsis: Some improvement Follow clinically -Anxiety depression otherwise specified Klonopin 0.5 mg daily at bedtime Zoloft 50 mg twice a day Seroquel 200 mg daily at bedtime Seroquel 100 mg daily at bedtime -Hyperlipidemia Pravachol 20 mg daily at bedtime -Essential hypertension Lopressor 50 mg twice a day -Cognitive impairment likely from Alzheimer's dementia Namenda 10 mg daily at bedtime -Diabetes mellitus type 2 chronically on insulin Levemir 15 units subcu daily at bedtime. Follow Accu-Cheks -GERD Nexium 40 mg daily at bedtime -Primary osteoarthritis multiple joints bilaterally Pain medications as needed dexamethasone. Oxygen support. Other medications to continue. Levemir 15 units subcu daily at bedtime. We'll arrange for patient to return to [facility]
[2021-08-01 21:01] LABS: Glucose,Whole Blood 217 mg/dL (75-99)
[2021-08-01] MEDS: MEMANTINE 10 MG TAB PO SCH (22:20)
[2021-08-01] MEDS: INSULIN DETEMIR (LEVEMIR) 100 UNIT/ML SYR SQ SCH (22:20)
[2021-08-01] MEDS: QUEtiapine 200 MG TAB PO SCH (22:20)
[2021-08-01] MEDS: clonazePAM 0.5 MG TAB PO SCH (22:21)
[2021-08-01] MEDS: PRAVASTATIN SODIUM 20 MG TAB PO SCH (22:21)
[2021-08-01] MEDS: PANTOPRAZOLE 40 MG TABLET PO SCH (22:22)
[2021-08-02 07:19] LABS: Glucose,Whole Blood 147 mg/dL (75-99)
[2021-08-02] MEDS: METOPROLOL TARTRATE 25 MG TAB PO SCH ×2 (08:17→16:28)
[2021-08-02] MEDS: PSYLLIUM HUSK 100% 6 GM PACKET PO SCH (08:17)
[2021-08-02] MEDS: SENNOSIDES-DOCUSATE SODIUM 1 EACH TAB PO SCH (08:17)
[2021-08-02] MEDS: DIVALPROEX SPRINKLE 125 MG CAP.SPRINK PO SCH (08:17)
[2021-08-02] MEDS: MULTIVITAMINS, THERA 1 EACH TAB PO SCH (08:17)
[2021-08-02] MEDS: ISOSORBIDE MONONITRATE ER 30 MG TAB.ER.24H PO SCH (08:17)
[2021-08-02] MEDS: ENOXAPARIN 40 MG/0.4 ML SYRINGE SQ SCH (08:17)
[2021-08-02] MEDS: ZINC SULFATE 220 MG CAP PO SCH (08:18)
[2021-08-02] MEDS: ASCORBIC ACID 500 MG TAB PO SCH (08:18)
[2021-08-02] MEDS: CHOLECALCIFEROL 25 MCG (1000 IU) TABLET PO SCH (08:18)
[2021-08-02] MEDS: SERTRALINE 50 MG TAB PO SCH ×2 (08:18→16:28)
[2021-08-02] MEDS: ASPIRIN 81 MG PO SCH (08:18)
[2021-08-02] MEDS: dexAMETHasone 2 MG TAB PO SCH (08:18)
[2021-08-02 10:10] VITALS: RESP 17
[2021-08-02 11:43] LABS: Glucose,Whole Blood 144 mg/dL (75-99)
--- NOTE | 2021-08-02 13:23 | P.PN ---
Subjective Progress Note Date: 08/02/21 85-year-old female patient hospitalized for COVID 19 related pneumonia. The patient is a detention resident and she resides at [facility]. The patient has dementia, diabetes mellitus, hypertension, depression, and history of osteoarthritis. Normally, he is alert she is alert and oriented 1 and the patient needs care at all times. The patient was noted to have fever of 102 in addition to increased cough that was quite productive. The patient was unable to bring up much of sputum. There was also a reported history of body aches and pains and the patient was becoming more lethargic and delirious and mumbling. Noted the patient is unable to volunteer any history. The patient checked positive for COVID 19. UA. Also, her urine analysis was abnormal and the patient may have an underlying urinary tract infection. For now, the patient's pro calcitonin level is at 0.12. D-dimer is at 4.14, the LDH level was 509 and the CRP level was 4.9. Sodium is at 139 with a BUN of 19 and a creatinine of 0.8 and the patient has a white cell count 9.8 with a hemoglobin of 10.7. The chest x-ray was repeated on 06/28/2021 and this was also compared to that she earlier chest x-ray that was done on 06/27/2021. Based on my review of the chest x-ray, the patient has smaller lung volumes. There was also some limited left basilar infiltrate. Otherwise no other acute abnormalities have been noted. For now, the patient is hospitalized. The patient is currently covered with a combination of IV Rocephin regarding possibility of urine checked infection, and Lovenox 40 mg subcu for DVT prophylaxis. Patient is currently on 2 L about 2 by nasal cannula with a pulse ox of 97%. No steroids have been offered to this patient. Meanwhile, the patient has been on Levemir insulin 35 units and the insulin was held today as the patient's blood sugar was running low. Outpatient medications of been all resume to her is pending for now. Blood cultures also pending. The patient was given a dose of Lasix 40 mg IV and the patient diuresed approximately 1900 mL of urine output. On 07/30/2021, the patient is lethargic and sleepy. Nevertheless, her breathing is nonlabored. The patient is only a few liters of oxygen by nasal cannula and I was informed by the nursing staff that she can even come off oxygen. No significant cough or sputum production. She is laying comfortably in bed. As suspected, the patient had an underlying urinary tract infection. The patient had blood cultures sent and there is are negative. Urine cultures still pending for now. The white cell count of 9.4 with a hemoglobin of 9.8, renal function is stable. D-dimer is at 1.7. The patient remains on IV antibiotics and the patient is currently on IV Rocephin with the understanding that she may be potentially infected with a ESBL producing gram-negative bacteria. Final cultures and sensitivities are pending for now. She remains on Levemir insulin 35 units along with a sliding scale coverage. She is on Lovenox 40 mg subcu for DVT prophylaxis. Rest of the medication resumed from her home list. On 07/31/2021 patient seen in follow-up on medical surgical floor. She is resting comfortably in bed, she is asymptomatic from pulmonary perspective, her breathing is nonlabored, she is currently on 2 L of oxygen a pulse ox of 97%, she does have a low-grade fever this morning, and she was febrile in the last 24 hours, with a T-max of 102.2F, patient was found to have urinary tract infe ction and she is currently on Rocephin awaiting final urine cultures, patient is known to have ESBL urinary tract infections in the past, current antibiotic coverage is with Rocephin. Today's labs have been reviewed, d-dimer is improved and is down to 1.37, electrolytes and renal profile are unremarkable, and her CRP is 14.1, her LDH on admission was non-elevated at 509, progressed on a level was 0.12. She was complaining of some abdominal pain, CT of the abdomen and pelvis was completed showing no acute intra-abdominal process, basilar atelectasis with effusions were noted. 08/01/2021, the patient is being seen for a follow-up.Her breathing is comfortable and she is on 2 L of oxygen by nasal cannula. She is resting comfortably in bed. No signs of any respiratory distress. She has a Ledesma catheter in place. Urine cultures came back negative for now. Meanwhile, the white cell count is at 1.9 with a hemoglobin of 10 and a platelet count of 117. D-dimer is at 0.88. No other significant events otherwise for now. The plan is to ultimately released this patient back [facility] her [facility] the detention. 08/02/2021, seeing the patient for a follow-up. The patient is doing well. The patient is comfortable on 2 L by nasal cannula. No new complaints otherwise for now. The patient is breathing well. Eating small amounts. She has a switched to oral antibiotics. Afebrile. Hemodynamically stable. No other significant events overnight. Objective - Vital Signs Vital signs: Vital Signs Temp 98.3 F 08/02/21 09:27 Pulse 88 08/02/21 09:27 Resp 17 08/02/21 09:27 BP 146/71 08/02/21 09:27 Pulse Ox 97 08/02/21 09:27 Intake & Output 08/01/21 08/02/21 08/02/21 18:59 06:59 18:59 Output Total 200 Balance -200 Output: Urine 200 Other: Voiding Method Indwelling Catheter Indwelling Catheter Indwelling Catheter # Voids 200 3 - Exam GENERAL: BMI 29.9, laying in bed a bit lethargic delirious. Breathing is nonla bored and the patient is currently on 2 L nasal cannula EYES: Pupils equal. Conjunctiva normal. HEENT: External appearance of nose and ears normal, oral cavity grossly normal. NECK: JVD not raised; masses not palpable. HEART: First and second heart sounds are normal; no edema. LUNGS: Respiratory rate increased, decreased breath sound expiratory crackles. ABDOMEN: Soft, nontender, liver spleen not palpable, no masses palpable. PSYCH: [Unable to assess patient somewhat delirious l. MUSCULAR skeletal: Evidence of OA in multiple joints NEUROLOGICAL: [Cranial nerves grossly intact; no facial asymmetry, moving limbs LYMPHATICS: No lymph nodes palpable in the axilla and neck - Labs CBC & Chem 7: 08/01/21 07:54 07/31/21 06:38 Labs: Abnormal Lab Results - Last 24 Hours (Table) 08/01/21 08/01/21 08/02/21 Range/Units 16:43 20:56 07:16 POC Glucose (mg/dL) 184 H 217 H 147 H (75-99) mg/dL 08/02/21 Range/Units 11:39 POC Glucose (mg/dL) 144 H (75-99) mg/dL Microbiology - Last 24 Hours (Table) 07/28/21 05:05 Blood Culture - Preliminary Blood No Growth after 120 hours 07/28/21 05:20 Blood Culture - Preliminary Blood No Growth after 120 hours Assessment and Plan Plan: #1. Acute COVID-19 infection without any clear evidence of pneumonia, patient is currently 2 liters of oxygen, and her pulse ox is around 97%, breathing comfortably, chest x-ray showed no evidence of acute pulmonary process on admission chest x-ray, subsequent chest x-ray showed bibasilar infiltrates, related to atelectasis with effusions. The patient's breathing status remains stable. No issues for now. #2. Acute urinary tract infection, awaiting final urine cultures, currently covered with Rocephin #3. History of dementia, patient is a detention resident #4. The patient. The #5. Chronic anxiety and depression #6. Hypertension #7. Osteoarthritis #8. History of ESBL producing E. coli, and previous gram-negative bacteria with potential, Proteus and enterococcus faecalis Plan Patient remains asymptomatic from pulmonary perspective CT of the abdomen and pelvis reviewed showing bibasilar atelectasis and small pleural effusions Provide incentive spirometer, instructed on the use, Vital signs are stable, obtain a room air pulse ox Switch to oral antibiotics Keep the patient on 2 L of oxygen by nasal cannula Pulmonary signing off the case
--- NOTE | 2021-08-02 13:56 | P.DS ---
Providers Date of admission: 07/28/21 05:00 Expected date of discharge: 08/02/21 Attending physician: Bhavesh Cheng Consults: 07/28/21 14:15 Consult Physician Routine Consulting Provider: Lul Oseguera Consult Reason/Comments: covid-19 Do you want consulting provider notified?: Yes [facility]: Chief Complaint: Fever This is a 85-year-old patient who follows with Dr. Velasco at [facility]. Chronic stable medical conditions include dementia, diabetes, GERD, hypertension, osteoarthritis, anxiety depression. Per the EMS run sheet patient was at the baseline mental status. Normally AO 2. Patient developed a fever 102 and a productive cough. Rapid COVID swab was negative. had a very productive cough. Body aches and pains. patient is somewhat delirious mumbling. Not able to give much of a history. congestived cough. Patient did test positive for COVID. Admitted with COVID 19 pneumonitis, acute UTI with cystitis, sepsis, acute metabolic encephalopathy with delirium. On IV ceftriaxone. Pulse ox did drop a bit hands dexamethasone added. Patient completed her antibiotics. August 02: Sitting up in bed. Had about 50% of her breakfast. Breathing better. 97% on 2 L. Discussion and discharge planning more than 35 minutes Consultation: Dr. Vera from pulmonary Past medical history to include: Dementia, diabetes, GERD, hypertension, osteoarthritis, anxiety, depression Social history: Resident of [facility]. No history of smoking or alcohol re ported. Family history: Diabetes, hypertension Physical examination: VITAL SIGNS: 98.3, 88, 17, 1 46 x 31, 97% on 2 L GENERAL: Reclining in bed, awake, tired, LUNGS: Respiratory rate increased, PSYCH: Answering simple questions. NEURO: Cranial nerves grossly intact. Moving all 4 limbs Rest of the exam per pulmonary and nursing INVESTIGATIONS, reviewed in the clinical context: August 01: WBC 1.9 hemoglobin 10 d-dimer 0.88 CRP 5.5 July 31: D-dimer 1.37 potassium 3.8 creatinine 0.81 CRP 14.1 July 30: White count 9.4 hemoglobin 9.8 platelets 145 d-dimer 1.7 potassium 3.6 creatinine 1.02 White count 6.7 hemoglobin 10.2 platelets 184 sodium 134 potassium 4.5 BUN 30 creatinine 0.87 CRP 4.9 UA positive for leukoesterase WBC bacteria Coronavirus [PCR]: Detected d-dimer 3.53 EKG tracing personally reviewed by me-sinus tachycardia. Rate 124 Chest x-ray film personally reviewed by me-possible infiltrate. Portable Assessment and plan: -Acute COVID 19 pneumonitis.: Better dexamethasone.. Give vitamin C vitamin D zinc supplement. Subcu Lovenox Discharged on steroid taper -Acute UTI with cystitis. Urine culture unremarkable IV ceftriaxone. Changed to Omnicef. Repeated course -Sepsis from pneumonitis and UTI IV fluids -Acute metabolic encephalopathy/delirium from sepsis: improvement Follow clinically -Anxiety depression otherwise specified Klonopin 0.5 mg daily at bedtime Zoloft 50 mg twice a day Seroquel 200 mg daily at bedtime -Hyperlipidemia Pravachol 20 mg daily at bedtime -Essential hypertension Lopressor 50 mg twice a day -Cognitive impairment likely from Alzheimer's dementia Namenda 10 mg daily at bedtime -Diabetes mellitus type 2 chronically on insulin Levemir 20 units subcu daily at bedtime. Follow Accu-Cheks [Prandin , Trajenta discontinued -GERD Nexium 40 mg daily at bedtime -Primary osteoarthritis multiple joints bilaterally Pain medications as needed [facility] Condition at Discharge: Fair Plan - Discharge Summary Discharge Rx Participant: No New Discharge Prescriptions: New Melatonin 3 mg PO HS PRN tablet PRN Reason: Insomnia predniSONE 10 mg PO DAILY #30 tab Continue Sertraline [Zoloft] 50 mg PO BID@0800,1600 Divalproex Sodium [Depakote] 125 mg PO BID Aspirin EC [Ecotrin Low Dose] 81 mg PO DAILY Acetaminophen [Tylenol] 650 mg PO Q8H PRN PRN Reason: Pain Cholecalciferol [Vitamin D3 (25 Mcg = 1000 Iu)] 50 mcg PO DAILY Esomeprazole Magnesium [NexIUM] 40 mg PO HS Multivitamins, Thera [Multivitamin (formulary)] 1 tab PO DAILY Memantine [Namenda] 10 mg PO HS Isosorbide Mononitrate ER [Imdur] 90 mg PO DAILY Ascorbic Acid [Vitamin C] 500 mg PO BID Ferrous Sulfate [Iron (65 MG Elemental)] 325 mg PO DAILY Pravastatin Sodium [Pravachol] 20 mg PO HS Psyllium Husk 100% [Metamucil Packet] 6 gm PO DAILY QUEtiapine FUMARATE [SEROquel] 200 mg PO HS Sennosides/Docusate Sodium [Senna Plus 8.6-50 mg Tablet] 1 tab PO BID Cranberry Fruit Extract [Cranberry] 500 mg PO HS Changed Insulin Detemir [Levemir Flextouch Pen] 20 units SQ DAILY #0 Metoprolol Tartrate [Lopressor] 25 mg PO BID@0800,1600 #0 Discontinued Linagliptin [Tradjenta] 5 mg PO DAILY QUEtiapine [SEROquel] 100 mg PO HS Repaglinide [Prandin] 1 mg PO TID@0700,1200,1700 No Action clonazePAM [KlonoPIN] 0.5 mg PO HS #10 tab Discharge Medication List Divalproex Sodium [Depakote] 125 mg PO BID 12/08/14 [History] Sertraline [Zoloft] 50 mg PO BID@0800,1600 12/08/14 [History] Aspirin EC [Ecotrin Low Dose] 81 mg PO DAILY 06/21/15 [History] clonazePAM [KlonoPIN] 0.5 mg PO HS #10 tab 06/27/15 [Rx] Acetaminophen [Tylenol] 650 mg PO Q8H PRN 10/13/16 [History] Cholecalciferol [Vitamin D3 (25 Mcg = 1000 Iu)] 50 mcg PO DAILY 10/13/16 [History] Esomeprazole Magnesium [NexIUM] 40 mg PO HS 10/13/16 [History] Isosorbide Mononitrate ER [Imdur] 90 mg PO DAILY 10/13/16 [History] Memantine [Namenda] 10 mg PO HS 10/13/16 [History] Multivitamins, Thera [Multivitamin (formulary)] 1 tab PO DAILY 10/13/16 [History] Ascorbic Acid [Vitamin C] 500 mg PO BID 07/28/21 [History] Cranberry Fruit Extract [Cranberry] 500 mg PO HS 07/28/21 [History] Ferrous Sulfate [Iron (65 MG Elemental)] 325 mg PO DAILY 07/28/21 [History] Pravastatin Sodium [Pravachol] 20 mg PO HS 07/28/21 [History] Psyllium Husk 100% [Metamucil Packet] 6 gm PO DAILY 07/28/21 [History] QUEtiapine FUMARATE [SEROquel] 200 mg PO HS 07/28/21 [History] Sennosides/Docusate Sodium [Senna Plus 8.6-50 mg Tablet] 1 tab PO BID 07/28/21 [History] Insulin Detemir [Levemir Flextouch Pen] 20 units SQ DAILY #0 08/02/21 [Rx] Melatonin 3 mg PO HS PRN tablet 08/02/21 [Rx] Metoprolol Tartrate [Lopressor] 25 mg PO BID@0800,1600 #0 08/02/21 [Rx] predniSONE 10 mg PO DAILY #30 tab 08/02/21 [Rx] Follow up Appointment(s)/Referral(s): Brad Velasco DO [Primary Care Provider] - 08/06/21 2:00 pm
[2021-08-02 13:58] VITALS: BMI 29.9
[2021-08-02 15:16] VITALS: BP 119/62; PULSE 86; TEMP 98.5
[2021-08-02] MEDS: SODIUM CHLORIDE 0.9% 1,000 ML IV SCH (15:18)
[2021-08-02 16:20] LABS: Glucose,Whole Blood 142 mg/dL (75-99)
== END 2021-08-02 18:10 | DRG 871 ==
LOC: EC 02:34 → 5NMEDONC 05:00 → 4SSUR 13:42
PROVIDERS: ADMIT Hospitalist; ATTEND Hospitalist
DX: A41.89 Other specified sepsis (principal); J12.82 Pneumonia due to coronavirus disease 2019; G93.41 Metabolic encephalopathy; U07.1 COVID-19; F05 Delirium due to known physiological condition; J98.11 Atelectasis; E11.9 Type 2 diabetes mellitus without complications; E78.5 Hyperlipidemia, unspecified; F02.80 Dementia in other diseases classified elsewhere, unspecified severity, without behavioral disturbance, psychotic disturbance, mood disturbance, and anxiety; G30.9 Alzheimer's disease, unspecified; F41.8 Other specified anxiety disorders; G47.00 Insomnia, unspecified; F32.A Depression, unspecified; I10 Essential (primary) hypertension; K21.9 Gastro-esophageal reflux disease without esophagitis; K59.00 Constipation, unspecified; M15.9 Polyosteoarthritis, unspecified; N30.90 Cystitis, unspecified without hematuria; Z90.49 Acquired absence of other specified parts of digestive tract; Z90.710 Acquired absence of both cervix and uterus; Z90.89 Acquired absence of other organs; Z79.4 Long term (current) use of insulin; Z79.82 Long term (current) use of aspirin; Z79.84 Long term (current) use of oral hypoglycemic drugs; Z79.899 Other long term (current) drug therapy; Z82.49 Family history of ischemic heart disease and other diseases of the circulatory system; Z83.3 Family history of diabetes mellitus; Z86.19 Personal history of other infectious and parasitic diseases; Z87.440 Personal history of urinary (tract) infections; Z88.1 Allergy status to other antibiotic agents; Z88.5 Allergy status to narcotic agent; Z88.0 Allergy status to penicillin; Z88.7 Allergy status to serum and vaccine; Z88.8 Allergy status to other drugs, medicaments and biological substances
CPT/HCPCS: 36415; 71045; 74177; 80048; 80053; 81001; 83605; 83615; 83735; 84145; 85025; 85379; 85610; 85730; 86140; 87040; 87086; 87635; 93005; 94760; 96361; 96374; 99285

== ENCOUNTER 2021-08-05 00:50 | Inpatient (IN) | payer MEDICARE, OTHER ==
[2021-08-05] MEDS ORDERED: IPRATROPIUM-ALBUTEROL 3 ML NEB INHALATION STA (01:10)
[2021-08-05] MEDS ORDERED: DEXAMETHASONE SOD PHOSPHATE 10 MG/ML 1 ML VIAL IVP STA (01:10)
--- NOTE | 2021-08-05 01:14 | ED ---
Recheck HPI - General Chief Complaint: Shortness of Breath Stated Complaint: Difficulty Breathing Time Seen by Provider: 08/05/21 01:08 Source: patient, EMS Mode of arrival: EMS Limitations: altered mental status - Related Data Home Medications Medication Instructions Recorded Confirmed Divalproex Sodium [Depakote] 125 mg PO BID 12/08/14 07/28/21 Sertraline [Zoloft] 50 mg PO BID@0800,1600 12/08/14 07/28/21 Aspirin EC [Ecotrin Low Dose] 81 mg PO DAILY 06/21/15 07/28/21 Acetaminophen [Tylenol] 650 mg PO Q8H PRN 10/13/16 07/28/21 Cholecalciferol [Vitamin D3 (25 50 mcg PO DAILY 10/13/16 07/28/21 Mcg = 1000 Iu)] Esomeprazole Magnesium [NexIUM] 40 mg PO HS 10/13/16 07/28/21 Isosorbide Mononitrate ER [Imdur] 90 mg PO DAILY 10/13/16 07/28/21 Memantine [Namenda] 10 mg PO HS 10/13/16 07/28/21 Multivitamins, Thera [Multivitamin 1 tab PO DAILY 10/13/16 07/28/21 (formulary)] Ascorbic Acid [Vitamin C] 500 mg PO BID 07/28/21 07/28/21 Cranberry Fruit Extract [Cranberry] 500 mg PO HS 07/28/21 07/28/21 Ferrous Sulfate [Iron (65 MG 325 mg PO DAILY 07/28/21 07/28/21 Elemental)] Pravastatin Sodium [Pravachol] 20 mg PO HS 07/28/21 07/28/21 Psyllium Husk 100% [Metamucil 6 gm PO DAILY 07/28/21 07/28/21 Packet] QUEtiapine FUMARATE [SEROquel] 200 mg PO HS 07/28/21 07/28/21 Sennosides/Docusate Sodium [Senna 1 tab PO BID 07/28/21 07/28/21 Plus 8.6-50 mg Tablet] Previous Rx's Medication Instructions Recorded Insulin Detemir [Levemir Flextouch 20 units SQ DAILY #0 08/02/21 Pen] Melatonin 3 mg PO HS PRN tablet 08/02/21 Metoprolol Tartrate [Lopressor] 25 mg PO BID@0800,1600 #0 08/02/21 clonazePAM [KlonoPIN] 0.5 mg PO HS #3 tab 08/02/21 predniSONE 10 mg PO DAILY #30 tab 08/02/21 Allergies Allergy/AdvReac Type Severity Reaction Status Date / Time LEWIS Inhibitors Allergy Unknown Verified 08/05/21 01:02 codeine Allergy Unknown Verified 08/05/21 01:02 influenza virus vaccine, Allergy Unknown Verified 08/05/21 01:02 specific Macrolide Antibiotics Allergy Unknown Verified 08/05/21 01:02 metformin Allergy Unknown Verified 08/05/21 01:02 Penicillins Allergy Unknown Verified 08/05/21 01:02 Review of Systems ROS Statement: Those systems with pertinent positive or pertinent negative responses have been documented in the HPI. ROS Other: All systems not noted in ROS Statement are negative. Past Medical History Past Medical History: Chest Pain / Angina, Dementia, Diabetes Mellitus, GERD/Reflux, Hypertension, Osteoarthritis (OA) History of Any Multi-Drug Resistant Organisms: ESBL, MRSA Date of last positivie culture/infection: 01/11/14 MRSA MDRO Source:: ESBL URINE, MRSA Buttock Past Surgical History: Cholecystectomy, Hysterectomy, Tonsillectomy Past Anesthesia/Blood Transfusion Reactions: No Reported Reaction Past Psychological History: Anxiety, Depression Smoking Status: Unknown if ever smoked Past Alcohol Use History: None Reported Past Drug Use History: None Reported - Past Family History Mother Family Medical History: Chest Pain / Angina, Diabetes Mellitus, Hypertension General Exam Limitations: altered mental status Course Vital Signs 08/05/21 08/05/21 08/05/21 00:57 01:46 02:00 Temperature 99.3 F Pulse Rate 113 H 133 H 138 H Respiratory 28 H 30 H Rate Blood Pressure 115/60 127/57 O2 Sat by Pulse 97 87 L Oximetry 08/05/21 02:10 Temperature Pulse Rate 141 H Respiratory Rate Blood Pressure O2 Sat by Pulse Oximetry Medical Decision Making - EKG Data -: EKG Interpreted by Me (EKG show is tachycardia 120 [place] 152 QRS 78 QTc 505) Disposition Clinical Impression: Weakness, Altered mental state, Coronavirus infection, Pneumonia due to COVID- 19 virus, Hypoxia, DNR (do not resuscitate) Disposition: ADMITTED IP TO THIS [facility] Condition: Serious Referrals: Brad Velasco DO [Primary Care Provider] - 1-2 days
[2021-08-05] MEDS: SODIUM CHLORIDE 0.9% 1,000 ML IV STA ×6 (01:15→09:38)
--- NOTE | 2021-08-05 01:40 | XR ---
EXAMINATION TYPE: XR chest 1V portable DATE OF EXAM: 08/05/2021 COMPARISON: 07/29/2021 HISTORY: Short of breath TECHNIQUE: FINDINGS: There is moderate pulmonary edema. Heart appears enlarged. Thoracic aorta is atheromatous. There are chest leads. IMPRESSION: Moderate pulmonary edema appears new compared to old exam and consistent with congestive heart failure or RDS.
[2021-08-05] MEDS ORDERED: ONDANSETRON 4 MG/2 ML VIAL IVP PRN (02:12)
[2021-08-05] MEDS ORDERED: NALOXONE 0.4 MG/ML 1 ML VIAL IV PRN (02:12)
[2021-08-05] MEDS ORDERED: IBUPROFEN 400 MG TAB PO PRN (02:12)
[2021-08-05] MEDS ORDERED: LORazepam 2 MG/ML INJ IV PRN (02:12)
[2021-08-05] MEDS ORDERED: MORPHINE SULFATE 4 MG/ML SYRINGE IV PRN (02:12)
[2021-08-05] MEDS ORDERED: ACETAMINOPHEN TAB 325 MG TAB PO PRN (02:12)
[2021-08-05 02:22] LABS: Basophils % (A) 1 %; Eosinophils % (A) 0 %; HCT 32.6 % (34.0-46.0); HGB 10.3 gm/dL (11.4-16.0); Lymphocytes # (A) 1.1 k/uL (1.0-4.8); Lymphocytes % (A) 19 %; MCH 27.1 pg (25.0-35.0); MCHC 31.6 g/dL (31.0-37.0); MCV 85.8 fL (80.0-100.0); Mean Platelet Volume 9.8; Monocytes # (A) 0.6 k/uL (0-1.0); Monocytes % (A) 10 %; Neutrophils # (A) 3.9 k/uL (1.3-7.7); Neutrophils % (A) 67 %; RDW 14.8 % (11.5-15.5); WBC 5.9 k/uL (3.8-10.6)
[2021-08-05 02:24] LABS: Platelet Count 92 k/uL (150-450)
[2021-08-05] MEDS ORDERED: SODIUM CHLORIDE 0.9% 500 ML 500 ML IV ONE (02:31)
[2021-08-05 02:33] LABS: INR 1.1 (<1.2); Partial Thromboplastin Time 24.7 sec (22.0-30.0); Prothrombin Time 11.9 sec (9.0-12.0)
[2021-08-05 02:35] LABS: ALT 71 U/L (4-34); AST 131 U/L (14-36); African American GFR (CKD) >90 (>60 ml/min/1.73 sqM); Albumin 2.6 g/dL (3.5-5.0); Alkaline Phosphatase 72 U/L (38-126); Anion Gap 9 mmol/L; Blood Urea Nitrogen 23 mg/dL (7-17); Carbon Dioxide 26 mmol/L (22-30); Chloride 107 mmol/L (98-107); Glucose 251 mg/dL (74-99); Magnesium 1.7 mg/dL (1.6-2.3); Non-African American GFR(CKD) 80 (>60 ml/min/1.73 sqM); Potassium 3.7 mmol/L (3.5-5.1); Sodium 142 mmol/L (137-145); Total Bilirubin 0.4 mg/dL (0.2-1.3); Total Protein 5.9 g/dL (6.3-8.2)
[2021-08-05 02:56] LABS: C Reactive Protein 19.8 mg/dL (<1.0)
[2021-08-05] MEDS ORDERED: ACETAMINOPHEN IV (For NPO) 1,000 MG in EMPTY BAG 1 BAG IVPB ONE (03:58)
[2021-08-05 07:33] VITALS: TEMP 98.7
[2021-08-05] MEDS ORDERED: CLINDAMYCIN 600 MG in DEXTROSE 5% IN WATER 50 ML IVPB SCH ×2 (08:45)
[2021-08-05] MEDS ORDERED: DEXAMETHASONE SOD PHOSPHATE 10 MG/ML 1 ML VIAL IVP SCH (09:00)
[2021-08-05] MEDS ORDERED: ENOXAPARIN 40 MG/0.4 ML SYRINGE SQ SCH (09:00)
--- NOTE | 2021-08-05 11:50 | P.CNPUL ---
History of Present Illness Consult date: 08/05/21 Reason for consult: dyspnea, hypoxemia, pneumonia Chief complaint: Dyspnea, hypoxia History of present illness: This is a 85-year-old female patient with past medical history of dementia, diabetes mellitus type 2, hypertension, depression, osteoarthritis, who we recently saw in consultation for positive COVID-19 PCR test however patient did not have clear evidence of pneumonia at that time, a chest x-ray was clear al though subsequent chest x-ray showed bibasilar infiltrates. Patient was hospitalized with acute urinary tract infection, she was treated with Rocephin, and not urine culture was negative. She does have a history of ESBL related to urinary tract infection. Patient was discharged to [facility] on 08/29/2021 on the prednisone taper. On the day of discharge her pulse ox was 97% on 2 L. Her baseline mental status is unclear. Per nursing report patient does not communicate, and has severe dementia. On 08/05/2021 patient was brought back to the emergency department by EMS for worsening dyspnea, and altered mental status. Patient's CODE STATUS is DO NOT RESUSCITATE. Chest x- ray in the emergency department shows moderate pulmonary edema which is new compared the most recent chest x-ray on 07/29/2021. Admission labs were reviewed showing white blood cell count of 5.9, hemoglobin of 10.3, platelet count was 92, INR was 1.1, electrolytes were unremarkable, BUN was 23 creatinine 0.69, AST was 131, ALT was 71, alkaline phosphatase was 72, troponin was 0.172, proBNP was 7790, CRP was 19.8. COVID-19 PCR was again positive. Patient is currently on 100% nonrebreather mask, with a pulse ox of 93-95%, she is afebrile, blood pressure is 127/64, clinically she looks dry, with dry oral mucous membranes, she does not verbally respond, she seems confused and encephalopathic. She has been given a liter bolus in the IV fluids, and currently 0.9 normal saline is at 1:30 ML per hour, she started on Decadron 6 mg daily, and prophylactic Lovenox. Chest x-ray shows a possibility of right lower lobe infiltrate with the possibility of aspiration pneumonia for which patient will be started on IV clindamycin. Review of Systems All systems: negative Constitutional: Reports weakness, Denies chills, Denies fever Eyes: denies blurred vision, denies pain Ears, nose, mouth and throat: Denies headache, Denies sore throat Cardiovascular: Denies chest pain, Denies shortness of breath Respiratory: Reports dyspnea, Denies cough Gastrointestinal: Denies abdominal pain, Denies diarrhea, Denies nausea, Denies vomiting Genitourinary: Denies dysuria, Denies hematuria Musculoskeletal: Denies myalgias Integumentary: Denies pruritus, Denies rash Neurological: Reports change in mentation, Denies numbness, Denies weakness Psychiatric: Denies anxiety, Denies depression Endocrine: Denies fatigue, Denies weight change Past Medical History Past Medical History: Chest Pain / Angina, Dementia, Diabetes Mellitus, GERD/Reflux, Hypertension, Osteoarthritis (OA) History of Any Multi-Drug Resistant Organisms: ESBL, MRSA Date of last positivie culture/infection: 01/11/14 MRSA MDRO Source:: ESBL URINE, MRSA Buttock Past Surgical History: Cholecystectomy, Hysterectomy, Tonsillectomy Past Anesthesia/Blood Transfusion Reactions: No Reported Reaction Past Psychological History: Anxiety, Depression Smoking Status: Unknown if ever smoked Past Alcohol Use History: None Reported Past Drug Use History: None Reported - Past Family History Mother Family Medical History: Chest Pain / Angina, Diabetes Mellitus, Hypertension Medications and Allergies Home Medications Medication Instructions Recorded Confirmed Type Divalproex Sodium [Depakote] 125 mg PO BID 12/08/14 08/05/21 History Sertraline [Zoloft] 50 mg PO BID 12/08/14 08/05/21 History Acetaminophen [Tylenol] 650 mg PO Q8H PRN 10/13/16 08/05/21 History Cholecalciferol [Vitamin D3 (25 25 mcg PO DAILY 10/13/16 08/05/21 History Mcg = 1000 Iu)] Isosorbide Mononitrate ER [Imdur] 90 mg PO DAILY 10/13/16 08/05/21 History Memantine [Namenda] 10 mg PO HS 10/13/16 08/05/21 History Multivitamins, Thera [Multivitamin 1 tab PO DAILY 10/13/16 08/05/21 History (formulary)] Ascorbic Acid [Vitamin C] 500 mg PO BID 07/28/21 08/05/21 History Cranberry Fruit Extract [Cranberry] 500 mg PO HS 07/28/21 08/05/21 History Ferrous Sulfate [Iron (65 MG 325 mg PO DAILY 07/28/21 08/05/21 History Elemental)] Pravastatin Sodium [Pravachol] 20 mg PO HS 07/28/21 08/05/21 History Psyllium Husk 100% [Metamucil 6 gm PO DAILY 07/28/21 08/05/21 History Packet] QUEtiapine FUMARATE [SEROquel] 200 mg PO HS 07/28/21 08/05/21 History clonazePAM [KlonoPIN] 0.5 mg PO HS #3 tab 08/02/21 08/05/21 Rx Aspirin 81 mg PO DAILY 08/05/21 08/05/21 History Insulin Detemir (Levemir) [Levemir] 20 unit SQ DAILY 08/05/21 08/05/21 History Melatonin 3 mg PO HS PRN 08/05/21 08/05/21 History Metoprolol Tartrate [Lopressor] 25 mg PO BID 08/05/21 08/05/21 History Omeprazole 20 mg PO DAILY 08/05/21 08/05/21 History Sennosides [Senna] 17.2 mg PO BID 08/05/21 08/05/21 History predniSONE See Taper PO DAILY 08/05/21 08/05/21 History Allergies Allergy/AdvReac Type Severity Reaction Status Date / Time LEWIS Inhibitors Allergy Unknown Verified 08/05/21 08:50 codeine Allergy Unknown Verified 08/05/21 08:50 influenza virus vaccine, Allergy Unknown Verified 08/05/21 08:50 specific Macrolide Antibiotics Allergy Unknown Verified 08/05/21 08:50 metformin Allergy Unknown Verified 08/05/21 08:50 Penicillins Allergy Unknown Verified 08/05/21 08:50 Physical Exam Vitals: Vital Signs Temp Pulse Resp BP Pulse Ox 08/05/21 09:40 103 H 20 123/61 95 08/05/21 07:30 98.7 F 110 H 26 H 145/69 94 L 08/05/21 06:30 98.3 F 108 H 22 125/62 93 L 08/05/21 04:00 117 H 38 H 129/72 91 L 08/05/21 03:20 99.8 F H 08/05/21 02:32 131 H 27 H 96/62 97 08/05/21 02:10 141 H 08/05/21 02:00 138 H 08/05/21 01:46 133 H 30 H 127/57 87 L 08/05/21 00:57 99.3 F 113 H 28 H 115/60 97 Intake and Output 08/04/21 08/05/21 08/05/21 22:59 06:59 14:59 Other: Weight 90.718 kg GENERAL EXAM: Lethargic, confused, nonverbal, 85-year-old white female, her percent nonrebreather, with a pulse ox of 93% comfortable in no apparent distress. HEAD: Normocephalic/atraumatic. EYES: Normal reaction of pupils, equal size. Conjunctiva pink, sclera white. NOSE: Clear with pink turbinates. THROAT: No erythema or exudates. NECK: No masses, no JVD, no thyroid enlargement, no adenopathy. CHEST: No chest wall deformity. Symmetrical expansion. LUNGS: Equal air entry with mesh breath sounds and bibasilar crackles CVS: Regular rate and rhythm, normal S1 and S2, no gallops, no murmurs, no rubs ABDOMEN: Soft, nontender. No hepatosplenomegaly, normal bowel sounds, no guarding or rigidity. EXTREMITIES: No clubbing, no edema, no cyanosis, 2+ pulses and upper and lower extremities. MUSCULOSKELETAL: Muscle strength and tone normal. SPINE: No scoliosis or deformity SKIN: No rashes CENTRAL NERVOUS SYSTEM: Lethargic, confused, nonverbal, 85-year-old white female, No focal deficits, tone is normal in all 4 extremities. Results - Laboratory Findings CBC and BMP: 08/05/21 01:29 08/05/21 01:29 PT/INR, D-dimer PT 11.9 sec (9.0-12.0) 08/05/21 01:29 INR 1.1 (<1.2) 08/05/21 01:29 Abnormal lab findings: Abnormal Labs 08/05/21 08/05/21 08/05/21 01:29 01:29 01:29 Hgb 10.3 L Hct 32.6 L Plt Count 92 L BUN 23 H Glucose 251 H Calcium 8.0 L AST 131 H ALT 71 H Troponin I 0.172 H* C-Reactive Protein 19.8 H Total Protein 5.9 L Albumin 2.6 L Coronavirus (PCR) 08/05/21 02:23 Hgb Hct Plt Count BUN Glucose Calcium AST ALT Troponin I C-Reactive Protein Total Protein Albumin Coronavirus (PCR) Detected A - Diagnostic Findings Chest x-ray: report reviewed, image reviewed Additional studies: EKG reviewed Assessment and Plan Plan: Assessment: #1. Acute hypoxic respiratory failure multifactorial, related to recent history of COVID-19 pneumonia, and suspected aspiration pneumonia. COVID-19 PCR was again positive on 08/05/2021. #2. Recent hospitalization from 07/28/2021 through 08/02/2021 for acute urinary tract infection, and during that time patient was also found to have COVID-19 infection, initially without clear evidence of pneumonia did develop some mild pulmonary infiltrates however did not require treatment other than supportive treatment and antibiotics for the UTI. Was discharged to [facility] on 08/02/2021 on prednisone taper #3. Altered mental status, related to severe hypoxia, recent UTI, sepsis, and COVID-19 encephalopathy #4. Acute exacerbation of CHF, unspecified #5. Recent history of urinary tract infection treated with Rocephin, urine culture was negative #6. History of ESBL related to urinary tract infection #7. History of dementia, and baseline mentation is on no however nursing staff reports that the patient is nonverbal and confused at baseline #8. [facility] resident #9. Chronic anxiety depression #10. Hypertension #11. Osteoarthritis Plan: Chest x-ray has been reviewed Suspected component of aspiration related pneumonia in addition to COVID-19 We will add clindamycin Continue Decadron 6 mg daily Titrate FiO2 to keep O2 sats ration is at 90% We'll send a urinalysis with culture Maintain aspiration precautions Nothing by mouth until is awake and alert, and able to take oral feedings safely We'll consider swallow evaluation once mentation improves and oxygenation improves patient is tolerating sips of clear liquids by mouth Continue Lovenox 40 mg daily CODE STATUS is DO NOT RESUSCITATE Overall prognosis is poor Recommend discussing hospice with the patient's family Continue supportive treatment until then I performed a history & physical examination of the patient and discussed their management with my nurse practitioner, Anh Freedman. I reviewed the nurse practitioner's note and agree with the documented findings and plan of care. Lung sounds are positive for dim breath sounds throughout the lung nichols. The findings and the impression was discussed with the patient. I attest to the documentation by the nurse practitioner. Time with Patient: Greater than 30
[2021-08-05 12:45] VITALS: RESP 22
--- NOTE | 2021-08-05 12:56 | P.HPIM ---
History of Present Illness H&P Date: 08/05/21 Chief Complaint: Hypoxic This is a 85-year-old patient who follows with Dr. Velasco at [facility]. Chronic stable medical conditions include dementia, diabetes, GERD, hypertension, osteoarthritis, anxiety depression. Normally AO 2. Patient was admitted to the hospital from July 28 through August 02 with COVID 19 pneumonitis, acute UTI with cystitis, sepsis, acute metabolic encephalopathy with delirium. When patient was discharged she was sitting up on the bed eating about 50% of her meals on 2 L of nasal cannula pulse ox 97%. Patient was brought in by the EMS. She was only responding to loud verbal stimuli. She was found to be lethargic with a pulse ox in the 50%. She was on 4 L of nasal cannula was switched over to 15 L. Nonrebreather. Chest x-ray in the ER shows bilateral significant infiltrates. Patient rather encephalopathic /delirious. On 15 L nonrebreather. Not able to give any history. Review of systems cannot be obtained as patient rather delirious Past medical history to include: Dementia, diabetes, GERD, hypertension, osteoarthritis, anxiety, depression, COVID 19 Social history: Resident of [facility]. No history of smoking or alcohol reported. Family history: Diabetes, hypertension Physical examination: VITAL SIGNS: 99.3, 130, 30, 1 27 x 8 57, 97% on 15 L nonrebreather GENERAL: BMI 30.4, the facemask, short of breath lethargic EYES: Pupils equal. Conjunctiva normal. HEENT: External appearance of nose and ears normal, oral cavity grossly normal. NECK: JVD unable to assess; masses not palpable. HEART: First and second heart sounds are normal; no edema. LUNGS: Respiratory rate increased, decreased breath sound accessory muscles working, some scattered crackles ABDOMEN: Soft, nontender, liver spleen not palpable, no masses palpable. PSYCH: [Unable to assess patient - delirious l. MUSCULAR skeletal: Evidence of OA in multiple joints NEUROLOGICAL: [Cranial nerves grossly intact; no facial asymmetry, LYMPHATICS: No lymph nodes palpable in the axilla and neck INVESTIGATIONS, reviewed in the clinical context: White count 5.9 hemoglobin 10.3 platelets 92 sodium 142 potassium 3.7 BUN 23 creatinine 0.69 Troponin I 0.172 CRP 19.8 Coronavirus [PCR]: Detected EKG tracing personally reviewed by me-normal sinus rhythm, some ST segment changes, rate 128 Chest x-ray film personally reviewed by me-bilateral infiltrates Assessment and plan: -Acute severe COVID 19 pneumonitis.: Patient was recently admitted to the hospital on July 28 with COVID 19 pneumonitis. Had improved. Was down to 2 L of nasal cannula with 97% oxygen. Now presents severely hypoxic delirious encephalopathic. IV dexamethasone.. Subcu Lovenox -Acute on chronic hypoxic respiratory failure from COVID 19 pneumonitis On 15 L high flow oxygen -Acute metabolic encephalopathy/delirium from COVID 19 Follow clinically -Anxiety depression otherwise specified Klonopin 0.5 mg daily at bedtime Zoloft 50 mg twice a day Seroquel 200 mg daily at bedtime -Hyperlipidemia Pravachol 20 mg daily at bedtime -Essential hypertension Lopressor 50 mg twice a day -Cognitive impairment likely from Alzheimer's dementia Namenda 10 mg daily at bedtime -Diabetes mellitus type 2 chronically on insulin Levemir 20 units subcu daily at bedtime. Follow Accu-Cheks -GERD Nexium 40 mg daily at bedtime -Primary osteoarthritis multiple joints bilaterally Pain medications as needed -Legal guardian: Audrey Leon -DO NOT RESUSCITATE Patient doing rather poorly. I spoke to patient is Dr. Audrey Leon briefly on the phone. She and other family members are coming in. IV dexamethasone subcu Lovenox oxygen supplementation. IV fluids. Pulmonary consultation. Daughter didn't make her DO NOT RESUSCITATE earlier Past Medical History Past Medical History: Chest Pain / Angina, Dementia, Diabetes Mellitus, GERD/Reflux, Hypertension, Osteoarthritis (OA) History of Any Multi-Drug Resistant Organisms: ESBL, MRSA Date of last positivie culture/infection: 01/11/14 MRSA MDRO Source:: ESBL URINE, MRSA Buttock Past Surgical History: Cholecystectomy, Hysterectomy, Tonsillectomy Past Anesthesia/Blood Transfusion Reactions: No Reported Reaction Past Psychological History: Anxiety, Depression Smoking Status: Unknown if ever smoked Past Alcohol Use History: None Reported Past Drug Use History: None Reported - Past Family History Mother Family Medical History: Chest Pain / Angina, Diabetes Mellitus, Hypertension Medications and Allergies Home Medications Medication Instructions Recorded Confirmed Type Divalproex Sodium [Depakote] 125 mg PO BID 12/08/14 08/05/21 History Sertraline [Zoloft] 50 mg PO BID 12/08/14 08/05/21 History Acetaminophen [Tylenol] 650 mg PO Q8H PRN 10/13/16 08/05/21 History Cholecalciferol [Vitamin D3 (25 25 mcg PO DAILY 10/13/16 08/05/21 History Mcg = 1000 Iu)] Isosorbide Mononitrate ER [Imdur] 90 mg PO DAILY 10/13/16 08/05/21 History Memantine [Namenda] 10 mg PO HS 10/13/16 08/05/21 History Multivitamins, Thera [Multivitamin 1 tab PO DAILY 10/13/16 08/05/21 History (formulary)] Ascorbic Acid [Vitamin C] 500 mg PO BID 07/28/21 08/05/21 History Cranberry Fruit Extract [Cranberry] 500 mg PO HS 07/28/21 08/05/21 History Ferrous Sulfate [Iron (65 MG 325 mg PO DAILY 07/28/21 08/05/21 History Elemental)] Pravastatin Sodium [Pravachol] 20 mg PO HS 07/28/21 08/05/21 History Psyllium Husk 100% [Metamucil 6 gm PO DAILY 07/28/21 08/05/21 History Packet] QUEtiapine FUMARATE [SEROquel] 200 mg PO HS 07/28/21 08/05/21 History clonazePAM [KlonoPIN] 0.5 mg PO HS #3 tab 08/02/21 08/05/21 Rx Aspirin 81 mg PO DAILY 08/05/21 08/05/21 History Insulin Detemir (Levemir) [Levemir] 20 unit SQ DAILY 08/05/21 08/05/21 History Melatonin 3 mg PO HS PRN 08/05/21 08/05/21 History Metoprolol Tartrate [Lopressor] 25 mg PO BID 08/05/21 08/05/21 History Omeprazole 20 mg PO DAILY 08/05/21 08/05/21 History Sennosides [Senna] 17.2 mg PO BID 08/05/21 08/05/21 History predniSONE See Taper PO DAILY 08/05/21 08/05/21 History Allergies Allergy/AdvReac Type Severity Reaction Status Date / Time LEWIS Inhibitors Allergy Unknown Verified 08/05/21 08:50 codeine Allergy Unknown Verified 08/05/21 08:50 influenza virus vaccine, Allergy Unknown Verified 08/05/21 08:50 specific Macrolide Antibiotics Allergy Unknown Verified 08/05/21 08:50 metformin Allergy Unknown Verified 08/05/21 08:50 Penicillins Allergy Unknown Verified 08/05/21 08:50 Physical Exam Vitals: Vital Signs Temp Pulse Resp BP Pulse Ox 08/05/21 07:30 98.7 F 110 H 26 H 145/69 94 L 08/05/21 06:30 98.3 F 108 H 22 125/62 93 L 08/05/21 04:00 117 H 38 H 129/72 91 L 08/05/21 03:20 99.8 F H 08/05/21 02:32 131 H 27 H 96/62 97 08/05/21 02:10 141 H 08/05/21 02:00 138 H 08/05/21 01:46 133 H 30 H 127/57 87 L 08/05/21 00:57 99.3 F 113 H 28 H 115/60 97 Intake and Output 08/04/21 08/05/21 08/05/21 22:59 06:59 14:59 Other: Weight 90.718 kg Results CBC & Chem 7: 08/05/21 01:29 08/05/21 01:29 Labs: Abnormal Lab Results - Last 24 Hours (Table) 08/05/21 08/05/21 08/05/21 Range/Units 01:29 01:29 01:29 Hgb 10.3 L (11.4-16.0) gm/dL Hct 32.6 L (34.0-46.0) % Plt Count 92 L (150-450) k/uL BUN 23 H (7-17) mg/dL Glucose 251 H (74-99) mg/dL Calcium 8.0 L (8.4-10.2) mg/dL AST 131 H (14-36) U/L ALT 71 H (4-34) U/L Troponin I 0.172 H* (0.000-0.034) ng/mL C-Reactive Protein 19.8 H (<1.0) mg/dL Total Protein 5.9 L (6.3-8.2) g/dL Albumin 2.6 L (3.5-5.0) g/dL Coronavirus (PCR) (Not Detectd) 08/05/21 Range/Units 02:23 Hgb (11.4-16.0) gm/dL Hct (34.0-46.0) % Plt Count (150-450) k/uL BUN (7-17) mg/dL Glucose (74-99) mg/dL Calcium (8.4-10.2) mg/dL AST (14-36) U/L ALT (4-34) U/L Troponin I (0.000-0.034) ng/mL C-Reactive Protein (<1.0) mg/dL Total Protein (6.3-8.2) g/dL Albumin (3.5-5.0) g/dL Coronavirus (PCR) Detected A (Not Detectd)
[2021-08-05 14:35] VITALS: BP 155/76; PULSE 83
--- NOTE | 2021-08-05 19:59 | P.DS ---
Providers Date of admission: 08/05/21 02:15 Expected date of discharge: 08/05/21 Attending physician: Bhavesh Cheng Consults: 08/05/21 02:15 Consult Physician Routine Consulting Provider: Zakia Vera Consult Reason/Comments: covidhypoxia Do you want consulting provider notified?: Yes [facility] Course: Chief Complaint: Hypoxic This is a 85-year-old patient who follows with Dr. Velasco at [facility]. Chronic stable medical conditions include dementia, diabetes, GERD, hypertension, osteoarthritis, anxiety depression. Normally AO 2. Patient was admitted to the hospital from July 28 through August 02 with COVID 19 pneumonitis, acute UTI with cystitis, sepsis, acute metabolic enc ephalopathy with delirium. When patient was discharged she was sitting up on the bed eating about 50% of her meals on 2 L of nasal cannula pulse ox 97%. Patient was brought in by the EMS. She was only responding to loud verbal stimuli. She was found to be lethargic with a pulse ox in the 50%. She was on 4 L of nasal cannula was switched over to 15 L. Nonrebreather. Chest x-ray in the ER shows bilateral significant infiltrates. Patient rather encephalopathic/delirious. On 15 L nonrebreather. Not able to give any history. Patient continued to do poorly. Met with the family. They decided to proceed with comfort care. Hospice was consulted. Being admitted to [facility] for symptom control Consultation: Dr. Hernandez from pulmonary Past medical history to include: Dementia, diabetes, GERD, hypertension, osteoarthritis, anxiety, depression, COVID 19 Social history: Resident of [facility]. No history of smoking or alcohol reported. Family history: Diabetes, hypertension Physical examination: VITAL SIGNS: 99.3, 130, 30, 1 27 x 8 57, 97% on 15 L nonrebreather GENERAL: BMI 30.4, the facemask, short of breath lethargic EYES: Pupils equal. Conjunctiva normal. HEENT: External appearance of nose and ears normal, oral cavity grossly normal. NECK: JVD unable to assess; masses not palpable. HEART: First and second heart sounds are normal; no edema. LUNGS: Respiratory rate increased, decreased breath sound accessory muscles working, some scattered crackles ABDOMEN: Soft, nontender, liver spleen not palpable, no masses palpable. PSYCH: [Unable to assess patient - delirious l. MUSCULAR skeletal: Evidence of OA in multiple joints NEUROLOGICAL: [Cranial nerves grossly intact; no facial asymmetry, LYMPHATICS: No lymph nodes palpable in the axilla and neck INVESTIGATIONS, reviewed in the clinical context: White count 5.9 hemoglobin 10.3 platelets 92 sodium 142 potassium 3.7 BUN 23 creatinine 0.69 Troponin I 0.172 CRP 19.8 Coronavirus [PCR]: Detected EKG tracing personally reviewed by me-normal sinus rhythm, some ST segment changes, rate 128 Chest x-ray film personally reviewed by me-bilateral infiltrates Assessment and plan: -Acute severe COVID 19 pneumonitis.: Patient was recently admitted to the hospital on July 28 with COVID 19 pneumonitis. Had improved. Was down to 2 L of nasal cannula with 97% oxygen. Now presents severely hypoxic delirious encephalopathic. IV dexamethasone.. Subcu Lovenox -Acute on chronic hypoxic respiratory failure from COVID 19 pneumonitis On 15 L high flow oxygen -Acute metabolic encephalopathy/delirium from COVID 19 Follow clinically -Anxiety depression otherwise specified Klonopin 0.5 mg daily at bedtime Zoloft 50 mg twice a day Seroquel 200 mg daily at bedtime -Hyperlipidemia Pravachol 20 mg daily at bedtime -Essential hypertension Lopressor 50 mg twice a day -Cognitive impairment likely from Alzheimer's dementia Namenda 10 mg daily at bedtime -Diabetes mellitus type 2 chronically on insulin Levemir 20 units subcu daily at bedtime. Follow Accu-Cheks -GERD Nexium 40 mg daily at bedtime -Primary osteoarthritis multiple joints bilaterally Pain medications as needed -Legal guardian: Audrey Leon -DO NOT RESUSCITATE Disposition: Comfort measures with GIP/hospice Plan - Discharge Summary New Discharge Prescriptions: No Action Sertraline [Zoloft] 50 mg PO BID Divalproex Sodium [Depakote] 125 mg PO BID Acetaminophen [Tylenol] 650 mg PO Q8H PRN PRN Reason: Pain Cholecalciferol [Vitamin D3 (25 Mcg = 1000 Iu)] 25 mcg PO DAILY Multivitamins, Thera [Multivitamin (formulary)] 1 tab PO DAILY Memantine [Namenda] 10 mg PO HS Isosorbide Mononitrate ER [Imdur] 90 mg PO DAILY Ascorbic Acid [Vitamin C] 500 mg PO BID Ferrous Sulfate [Iron (65 MG Elemental)] 325 mg PO DAILY Pravastatin Sodium [Pravachol] 20 mg PO HS Psyllium Husk 100% [Metamucil Packet] 6 gm PO DAILY QUEtiapine FUMARATE [SEROquel] 200 mg PO HS Aspirin 81 mg PO DAILY Melatonin 3 mg PO HS PRN PRN Reason: Insomnia Sennosides [Senna] 17.2 mg PO BID Metoprolol Tartrate [Lopressor] 25 mg PO BID Cranberry Fruit Extract [Cranberry] 500 mg PO HS clonazePAM [KlonoPIN] 0.5 mg PO HS #3 tab Insulin Detemir (Levemir) [Levemir] 20 unit SQ DAILY Omeprazole 20 mg PO DAILY predniSONE See Taper PO DAILY Discharge Medication List Divalproex Sodium [Depakote] 125 mg PO BID 12/08/14 [History] Sertraline [Zoloft] 50 mg PO BID 12/08/14 [History] Acetaminophen [Tylenol] 650 mg PO Q8H PRN 10/13/16 [History] Cholecalciferol [Vitamin D3 (25 Mcg = 1000 Iu)] 25 mcg PO DAILY 10/13/16 [History] Isosorbide Mononitrate ER [Imdur] 90 mg PO DAILY 10/13/16 [History] Memantine [Namenda] 10 mg PO HS 10/13/16 [History] Multivitamins, Thera [Multivitamin (formulary)] 1 tab PO DAILY 10/13/16 [History] Ascorbic Acid [Vitamin C] 500 mg PO BID 07/28/21 [History] Cranberry Fruit Extract [Cranberry] 500 mg PO HS 07/28/21 [History] Ferrous Sulfate [Iron (65 MG Elemental)] 325 mg PO DAILY 07/28/21 [History] Pravastatin Sodium [Pravachol] 20 mg PO HS 07/28/21 [History] Psyllium Husk 100% [Metamucil Packet] 6 gm PO DAILY 07/28/21 [History] QUEtiapine FUMARATE [SEROquel] 200 mg PO HS 07/28/21 [History] clonazePAM [KlonoPIN] 0.5 mg PO HS #3 tab 08/02/21 [Rx] Aspirin 81 mg PO DAILY 08/05/21 [History] Insulin Detemir (Levemir) [Levemir] 20 unit SQ DAILY 08/05/21 [History] Melatonin 3 mg PO HS PRN 08/05/21 [History] Metoprolol Tartrate [Lopressor] 25 mg PO BID 08/05/21 [History] Omeprazole 20 mg PO DAILY 08/05/21 [History] Sennosides [Senna] 17.2 mg PO BID 08/05/21 [History] predniSONE See Taper PO DAILY 08/05/21 [History] Follow up Appointment(s)/Referral(s): Brad Velasco DO [Primary Care Provider] - 1-2 days Discharge Disposition: HOME WITH HOSPICE
== END 2021-08-05 14:40 | disposition hospice, home (50) | DRG 177 ==
LOC: EC 00:50 → 4SSUR 02:15
PROVIDERS: ADMIT Hospitalist; ATTEND Hospitalist
DX: U07.1 COVID-19 (principal); J12.82 Pneumonia due to coronavirus disease 2019; J96.21 Acute and chronic respiratory failure with hypoxia; J69.0 Pneumonitis due to inhalation of food and vomit; G93.41 Metabolic encephalopathy; G30.9 Alzheimer's disease, unspecified; F02.80 Dementia in other diseases classified elsewhere, unspecified severity, without behavioral disturbance, psychotic disturbance, mood disturbance, and anxiety; I11.0 Hypertensive heart disease with heart failure; I50.9 Heart failure, unspecified; E11.9 Type 2 diabetes mellitus without complications; Z79.4 Long term (current) use of insulin; Z66 Do not resuscitate; Z51.5 Encounter for palliative care; K21.9 Gastro-esophageal reflux disease without esophagitis; E78.5 Hyperlipidemia, unspecified; M15.9 Polyosteoarthritis, unspecified; F41.8 Other specified anxiety disorders; Z79.82 Long term (current) use of aspirin; Z79.899 Other long term (current) drug therapy; Z86.14 Personal history of Methicillin resistant Staphylococcus aureus infection; Z86.19 Personal history of other infectious and parasitic diseases; Z90.49 Acquired absence of other specified parts of digestive tract; Z87.19 Personal history of other diseases of the digestive system; Z90.710 Acquired absence of both cervix and uterus; Z90.89 Acquired absence of other organs; Z87.42 Personal history of other diseases of the female genital tract; Z87.440 Personal history of urinary (tract) infections; Z98.890 Other specified postprocedural states; Z88.1 Allergy status to other antibiotic agents; Z88.5 Allergy status to narcotic agent; Z88.0 Allergy status to penicillin; Z88.7 Allergy status to serum and vaccine; Z88.8 Allergy status to other drugs, medicaments and biological substances; Z82.49 Family history of ischemic heart disease and other diseases of the circulatory system; Z83.3 Family history of diabetes mellitus
CPT/HCPCS: 36415; 71045; 80053; 83735; 83880; 84484; 85025; 85610; 85730; 86140; 87635; 93005; 94640; 99285

== ENCOUNTER 2021-08-05 15:19 | Inpatient (IN) | payer MEDICAID ==
[~2021-08-05 15:19] MED LIST: ACETAMINOPHEN SUPPOSITORY 650 MG SUPP RECTAL PRN; ATROPINE OPHTH SOLN 1% 5ML BTL SUBLINGUAL PRN; GLYCOPYRROLATE 0.2 MG/ML 2 ML VIAL IVP PRN; HALOPERIDOL LACTATE 5 MG/ML 1 ML VIAL IM PRN; LORazepam 2 MG/ML INJ IV PRN; MORPHINE SULFATE 2 MG/ML SYRINGE IV PRN; ONDANSETRON 4 MG/2 ML VIAL IVP PRN; SCOPOLAMINE 1.5MG/72HR PATCH TRANSDERM SCH
[2021-08-05] MEDS: MORPHINE SULFATE 2 MG/ML SYRINGE IVP SCH ×4 (16:18→23:06)
[2021-08-05 17:34] VITALS: RESP 20
[2021-08-06] MEDS: MORPHINE SULFATE 2 MG/ML SYRINGE IVP SCH ×12 (05:36→22:07)
[2021-08-06 09:15] VITALS: TEMP 98.2
[2021-08-06 10:17] VITALS: BMI 13.8
[2021-08-06] MEDS: MORPHINE SULFATE (100 MG/2 ML) 100 MG in SODIUM CHLORIDE 0.9% 100 ML IV SCH ×2 (13:29→15:47)
[2021-08-06] MEDS: LORazepam 2 MG/ML INJ IV PRN ×2 (14:15→17:37)
[2021-08-06 14:48] VITALS: BP 141/109; PULSE 80
--- NOTE | 2021-08-07 11:01 | P.PN ---
Progress Note - Text Progress Note Date: 08/06/21 Patient on comfort measures. Getting morphine in Ativan when necessary. Son is at the bedside. Patient is talking about. Taking some liquids. On examination: 98.2, 80, 20, 141/109, 76% on 6 L Laying in bed. Tired. A bit awake Short of breath Lungs: Increased respiratory rate. Decreased breath sounds Cardiovascular heart sounds irregular Psychiatry: Answering occasional question COVID 19 pneumonitis: Continue comfort measures. Including Ativan and morphine. Discussed with son at the bedside. Questions answered.
--- NOTE | 2021-08-07 21:51 | P.DS ---
Providers Date of admission: 08/05/21 15:20 Expected date of discharge: 08/07/21 Attending physician: Bhavesh Cheng [facility] Course: Patient admitted for comfort measures. Family was present. [facility] admitted the patient for GIP. Patient today Cause of : COVID 19 pneumonitis Plan - Discharge Summary Discharge Rx Participant: No New Discharge Prescriptions: Discontinued Sertraline [Zoloft] 50 mg PO BID Divalproex Sodium [Depakote] 125 mg PO BID Acetaminophen [Tylenol] 650 mg PO Q8H PRN PRN Reason: Pain Cholecalciferol [Vitamin D3 (25 Mcg = 1000 Iu)] 25 mcg PO DAILY Multivitamins, Thera [Multivitamin (formulary)] 1 tab PO DAILY Memantine [Namenda] 10 mg PO HS Isosorbide Mononitrate ER [Imdur] 90 mg PO DAILY Ascorbic Acid [Vitamin C] 500 mg PO BID Ferrous Sulfate [Iron (65 MG Elemental)] 325 mg PO DAILY Pravastatin Sodium [Pravachol] 20 mg PO HS Psyllium Husk 100% [Metamucil Packet] 6 gm PO DAILY QUEtiapine FUMARATE [SEROquel] 200 mg PO HS Aspirin 81 mg PO DAILY Melatonin 3 mg PO HS PRN PRN Reason: Insomnia Sennosides [Senna] 17.2 mg PO BID Metoprolol Tartrate [Lopressor] 25 mg PO BID Cranberry Fruit Extract [Cranberry] 500 mg PO HS clonazePAM [KlonoPIN] 0.5 mg PO HS #3 tab Insulin Detemir (Levemir) [Levemir] 20 unit SQ DAILY Omeprazole 20 mg PO DAILY predniSONE See Taper PO DAILY Discharge Disposition: - Preliminary Cause of Preliminary Cause of : COVID 19 pneumonitis
== END 2021-08-07 06:36 | disposition expired | DRG 951 ==
LOC: UNDOADMIN 15:19 → 5NMEDONC 15:19 → EC 15:19 → 4SSUR 15:20 → 5NMEDONC 15:33 → 4SSUR 15:33 → EC 15:50 → EDSTATUS 15:50 → 1SOBS 16:11
PROVIDERS: ADMIT Hospitalist; ATTEND Hospitalist
DX: Z51.5 Encounter for palliative care (principal); U07.1 COVID-19; J12.82 Pneumonia due to coronavirus disease 2019; G93.41 Metabolic encephalopathy; J96.21 Acute and chronic respiratory failure with hypoxia; E11.9 Type 2 diabetes mellitus without complications; K21.9 Gastro-esophageal reflux disease without esophagitis; Z66 Do not resuscitate; I10 Essential (primary) hypertension; M19.90 Unspecified osteoarthritis, unspecified site; F41.9 Anxiety disorder, unspecified; F32.9 Major depressive disorder, single episode, unspecified; E78.5 Hyperlipidemia, unspecified; G30.9 Alzheimer's disease, unspecified; M15.9 Polyosteoarthritis, unspecified; F02.80 Dementia in other diseases classified elsewhere, unspecified severity, without behavioral disturbance, psychotic disturbance, mood disturbance, and anxiety; Z86.16 Personal history of COVID-19; Z79.899 Other long term (current) drug therapy; Z79.4 Long term (current) use of insulin; Z86.14 Personal history of Methicillin resistant Staphylococcus aureus infection; Z79.82 Long term (current) use of aspirin; Z83.3 Family history of diabetes mellitus; Z82.49 Family history of ischemic heart disease and other diseases of the circulatory system; Z79.52 Long term (current) use of systemic steroids; Z88.5 Allergy status to narcotic agent; Z88.0 Allergy status to penicillin; Z88.7 Allergy status to serum and vaccine; Z88.8 Allergy status to other drugs, medicaments and biological substances